=== PATIENT | male | born 1955 | race Caucasian/White ===

== ENCOUNTER → 2018-03-28 | Outpatient (CLI) | payer BC ==
[2018-03-28 11:21] LABS: Basophils # (A) 0.1 k/uL (0-0.2); Basophils % (A) 1 %; Eosinophils # (A) 0.4 k/uL (0-0.7); Eosinophils % (A) 7 %; HCT 47.4 % (39.0-53.0); Lymphocytes # (A) 2.1 k/uL (1.0-4.8); Lymphocytes % (A) 32 %; MCH 36.5 pg (25.0-35.0); MCHC 33.8 g/dL (31.0-37.0); MCV 107.9 fL (80.0-100.0); Macrocytosis Moderate; Mean Platelet Volume 8.1; Monocytes # (A) 0.3 k/uL (0-1.0); Monocytes % (A) 5 %; Neutrophils # (A) 3.5 k/uL (1.3-7.7); Neutrophils % (A) 53 %; Platelet Count 153 k/uL (150-450); RBC 4.39 m/uL (4.30-5.90); WBC 6.6 k/uL (3.8-10.6)
[2018-03-28 11:23] LABS: Albumin 4.8 g/dL (3.5-5.0); Calcium 10.1 mg/dL (8.4-10.2); Potassium 5.2 mmol/L (3.5-5.1); Total Bilirubin 2.3 mg/dL (0.2-1.3); Total Protein 7.5 g/dL (6.3-8.2)
[2018-03-28 11:28] LABS: Appearance,Urine Clear (Clear); Bilirubin,Urine Negative (Negative); Blood,Urine Negative (Negative); Color,Urine Yellow; Glucose,Urine (UA) Negative (Negative); Ketones,Urine Negative (Negative); Leukocyte Esterase,Urine Negative (Negative); Nitrite,Urine Negative (Negative); PH, Urine 5.5 (5.0-8.0); Protein,Urine Negative (Negative); Specific Gravity,Urine 1.013 (1.001-1.035); Urobilinogen,Urine <2.0 mg/dL (<2.0)
[2018-03-28 11:46] LABS: INR 1.1 (<1.2); Partial Thromboplastin Time 23.7 sec (22.0-30.0); Prothrombin Time 10.7 sec (9.0-12.0)
== END | disposition home or self-care (01) ==
LOC: LABPAT 10:00
PROVIDERS: ATTEND Orthopaedic Surgery
DX: Z01.812 Encounter for preprocedural laboratory examination (principal)
CPT/HCPCS: 36415; 80053; 81003; 85025; 85610; 85730; 87070

== ENCOUNTER 2018-04-05 11:40 | Inpatient (IN) | payer BC ==
[2018-03-30 12:10] VITALS: BMI 25.0
[~2018-04-05 11:40] MED LIST: ONDANSETRON 4 MG/2 ML VIAL IVP PRN; ONDANSETRON 4 MG/2 ML VIAL ONE; TRANEXAMIC ACID 1,000 MG in SODIUM CHLORIDE 0.9% 50 ML IVPB ONE; ceFAZolin IN SWFI 2 GM/20 ML SYRINGE IVP ONE; fentaNYL (PF) 50 MCG/ML 2 ML AMP IV PRN
[2018-04-05] MEDS: ACETAMINOPHEN TAB 500 MG TAB PO ONE ×2 (12:12→17:42)
[2018-04-05] MEDS: MELOXICAM 7.5 MG TAB PO ONE ×2 (12:13→17:42)
[2018-04-05] MEDS ORDERED: LIDOCAINE 1% 20 ML VIAL (10MG/ML) FOR IV START INTRADERMA ONE (12:13)
[2018-04-05] MEDS: LACTATED RINGERS 1,000 ML IV SCH ×6 (12:14→17:47)
[2018-04-05] MEDS ORDERED: DEXAMETHASONE SOD PHOSPHATE 10 MG/ML 1 ML VIAL IV ONE (12:18)
[2018-04-05 12:25] LABS: Basophils # (A) 0.1 k/uL (0-0.2); Basophils % (A) 1 %; Eosinophils # (A) 0.6 k/uL (0-0.7); Eosinophils % (A) 7 %; HCT 44.8 % (39.0-53.0); HGB 15.2 gm/dL (13.0-17.5); Lymphocytes # (A) 2.3 k/uL (1.0-4.8); Lymphocytes % (A) 28 %; MCH 36.9 pg (25.0-35.0); MCV 108.6 fL (80.0-100.0); Macrocytosis Moderate; Mean Platelet Volume 7.8; Monocytes # (A) 0.4 k/uL (0-1.0); Monocytes % (A) 5 %; Neutrophils # (A) 4.8 k/uL (1.3-7.7); Neutrophils % (A) 58 %; Platelet Count 139 k/uL (150-450); RBC 4.12 m/uL (4.30-5.90); RDW 13.8 % (11.5-15.5); WBC 8.2 k/uL (3.8-10.6)
[2018-04-05] MEDS ORDERED: LACTATED RINGERS 1,000 ML BAG IV ONE (12:46)
[2018-04-05] MEDS ORDERED: HEPARIN SODIUM,PORCINE 10,000 UNIT/ML 1 ML VIAL ONE (12:46)
[2018-04-05] MEDS: ROPIVACAINE 246.25 MG, EPINEPHrine 0.5 MG, KETOROLAC 30 MG, cloNIDine HCL/PF 80 MCG, WA... MISCELLANE ONE ×10 (13:22→14:05)
[2018-04-05] MEDS ORDERED: ceFAZolin 3,000 MG in SODIUM CHLORIDE 0.9% IRRIGATIO 3,000 ML IRRIGATION ONE (13:22)
[2018-04-05] MEDS ORDERED: LACTATED RINGERS 1,000 ML IV ONE (13:39)
--- NOTE | 2018-04-05 14:14 | P.OP ---
Date of Procedure: 04/05/18 Preoperative Diagnosis: Severe osteoarthritis left hip Postoperative Diagnosis: Severe osteoarthritis left hip Procedure(s) Performed: Left total hip arthroplasty with a direct anterior approach Implants: Moss and nephew Polarstem size 5 standard Moss & Nephew R3, 3 hole acetabular shell, 54 mm Moss [employer] Nephew reflection 6.5 mm cancellus screw, 20 mm 2 Moss [employer] Nephew R3, XLPE 20 acetabular liner Moss & Nephew Oxinium femoral head 36 m, +8 All components were press-fit. The articulation is Oxinium on polyethylene. Anesthesia: spinal Surgeon: Manuel Flynn Print Producer #1: Donna Garcia Estimated Blood Loss (ml): 100 Pathology: other (Femoral head) Condition: stable Disposition: PACU Indications for Procedure: After failure of conservative treatment we discussed the surgical and nonsurgical treatment options at length. Patient wishes to proceed with a total hip arthroplasty with a direct anterior approach. Complications specific to this procedure were discussed at length, including but not limited to infection, leg length discrepancy, dislocation, and nerve injury. Patient is aware of all these complications and informed consent was obtained Operative Findings: The operative findings are consistent with severe osteoarthritis of the left hip Description of Procedure: Patient was seen and evaluated in the preoperative area, consent was reviewed, and the surgical site was marked with a skin marker. Patient was then brought to the operating room and given prophylactic antibiotics intravenously. 1 g of Tranexamic acid was also given. A spinal anesthetic was administered by the anesthesia department. The patient was then placed on the Vancleave table with the bony prominences well-padded. The hip area was then prepped and draped in usual sterile fashion. A universal timeout was then performed, which confirmed the patient's name, surgical site, ALLERGIES, and procedure being performed. Next the incision site was located at 1 cm distal and 1 cm lateral to the anterior superior iliac spine. The skin and subcutaneous tissues were sharply incised. Incision was carefully dissected down to the fascia overlying the tensor fascia magdalene muscle. This fascia was then incised in line with the incision. Next, using blunt finger dissection, the tensor fascia magdalene muscle was dissected off its investing fascia. The muscle was then carefully retracted laterally with a cobra retractor over the lateral neck of the femur. Next, the circumflex vessels were identified and cauterized using the AquaMantis device. The anterior hip capsule was then exposed. The capsule was then opened and an inverted T fashion. Cobra retractors were then placed intracapsularly. The proximal femur was then visualized. The femoral neck was then osteotomized appropriate level above the lesser trochanter. Small amount of traction was placed with the Vancleave table. A small wedge of bone was then removed from the remaining femoral head. Next, using a corkscrew femoral head was easily removed from the acetabulum. On gross visual inspection, the femoral head had complete loss of articular cartilage in multiple periarticular osteophytes. Attention was then turned to the acetabulum. the acetabulum was exposed and any remaining labrum was excised. Sequential reaming of the acetabulum was performed using fluoroscopic guidance. When the appropriate size was reached, a trial was then placed. The position and fit of the trial was checked with fluoroscopy. The trial was then removed. Then, using fluoroscopic guidance, the final implant was impacted at 20 of anteversion and 40 of abduction, and fully seated in the acetabulum. 2 screws were then placed in the acetabulum. Again fluoroscopy was used to check position of the screws. Next, the liner was then impacted, with a 20 elevated liner located in the anterior superior quadrant. Component locking was confirmed. Attention was then directed to the femur. With the aid of the Vancleave table, the femur was externally rotated to approximately 130, extended, and abducted under the opposite leg. A side hook was then placed under the proximal femur, and the side hook elevator was used to elevate the proximal femur. Retractors were then placed. A capsular release was performed, as well as a release of the conjoined tendon, which afforded excellent visualization of the proximal femur. Next, a box osteotome was used to lateralize the proximal femur. A hand engraver was then used to locate the femoral canal. Sequential broaching was then performed with appropriate size which afforded excellent fixation in the proximal femur. A trial was then placed with appropriate head and neck, and the hip was gently reduced with the aid of the Vancleave table. Fluoroscopy was then used to check position of the components, as well as to ensure equal leg lengths. The hip was then gently dislocated and the trials were then removed. Final implants were then impacted and the hip was again reduced. Final fluoroscopic x-rays confirmed that the components were in anatomic position, as well as equal leg lengths. The hip was also taken through range of motion, and found to be stable. The hip was then copiously irrigated with antibiotic solution with pulsatile lavage. The hip was then irrigated with Irrisept solution. The soft tissues were then injected with a ropivacaine solution, which consisted of 246.25 mg of ropivacaine, 0.5 mg of epinephrine, 30 mg of Toradol, 80 g of clonidine, and 48.45 mL of sterile water, for a total of 100 mL of fluid injected. A second dose of 1 g of Tranexamic acid was also given. the fascia was then closed with 2-0 strata fix suture. The subcutaneous tissue was closed with 3-0 Vicryl. The subcuticular tissue was closed with 3-0 strata fix suture. The skin was then closed with Dermabond glue and a sterile silver dressing. The patient was then transferred to the recovery room in stable condition. The business assistant VEDA Reynaga was required due to the complexity of surgery, and the need for skilled surgical scrub technologist for positioning, draping, exposure, retraction, and closure of the wound.
--- NOTE | 2018-04-05 14:19 | XR ---
EXAMINATION TYPE: XR Hip Limited LT DATE OF EXAM: 04/05/2018 COMPARISON: NONE HISTORY: Anterior hip replacement 2 intraoperative C-arm images document the seizure
--- NOTE | 2018-04-05 14:20 | FL ---
Fluoroscopy HISTORY: Hip replacement 33 seconds fluoroscopy time supplied to the referring clinician. 2 intraoperative C-arm images docu ment the procedure. See dictated report from orthopedic surgery.
[2018-04-05] MEDS ORDERED: ONDANSETRON 4 MG/2 ML VIAL IVP PRN (14:39)
[2018-04-05] MEDS ORDERED: NALOXONE 0.4 MG/ML 1 ML VIAL IV PRN (14:39)
[2018-04-05] MEDS ORDERED: MAGNESIUM HYDROXIDE 2,400 MG/10 ML CUP PO PRN (14:39)
[2018-04-05] MEDS ORDERED: hydrOXYzine PAMOATE 25 MG CAP PO PRN (14:39)
[2018-04-05] MEDS ORDERED: HYDROcodone/APAP 5-325MG 1 EACH TAB PO PRN ×2 (14:39)
[2018-04-05] MEDS ORDERED: HYDROmorphone 0.5 MG/0.5 ML SYRINGE IVP PRN ×3 (14:39)
[2018-04-05] MEDS ORDERED: DIAZEPAM 5 MG TAB PO PRN ×2 (14:39)
[2018-04-05] MEDS ORDERED: SODIUM CHLORIDE 0.9% 1,000 ML IV SCH (14:45)
--- NOTE | 2018-04-05 15:05 | XR ---
Left hip HISTORY: Post op left hip arthroplasty Single frontal view of the left hip Patient is status post left hip arthroplasty. Patient is rotated. Postop coils are present within the soft tissues towards the midline. Lucency in the soft tissues compatible with postop state. Near seth tomic alignment of the patient's hip replacement. IMPRESSION: Orthopedic follow-up.
[2018-04-05 15:25] VITALS: RESP 16
--- NOTE | 2018-04-05 16:16 | P.CONS ---
History of Present Illness - Reason for Consult Consult date: 04/05/18 hypertension Requesting physician: Manuel Flynn - Chief Complaint left hip pain - History of Present Illness Patient is a 63-year-old male with a past medical history of hypertension, dyslipidemia, gout, and tobacco abuse who presented for elective left anterior total hip replacement. He tolerated the procedure well without any immediate postoperative complications. We've been asked to consult for medical management. Patient seen and examined at bedside. He is feeling well postoperatively. He denies any nausea, vomiting, shortness of breath, or chest pain. Currently he is not having any feeling in either lower extremities and his pain is controlled. Patient states that he has been struggling with hip pain since 2013. He initially thought it was his back. He has been shoveling through but the pain continued to get worse requiring daily Motrin and was limiting his physical activity. He decided to proceed with elective total hip arthroplasty. He denies any recent cough, cold, fever, flu, nausea, vomiting, diarrhea, and dysuria. He has otherwise been in his normal state of health. He denies any recent changes in medications other than coming off of his Motrin. He has been taking Ultram once every other day to help with pain. Reports already feeling cravings for cigarettes. Preoperative labs reviewed and showed elevated potassium level. Patient is on lisinopril and hydrochlorothiazide at home. We'll stop his lisinopril for now and order repeat basic metabolic profile in AM. Discussed with patient and he is aware that we may need to come off his lisinopril for the time being as we are combining this with an NSAID for the next 30 days for DVT prophylaxis. Review of Systems Positive: + Left hip pain Pertinent positives and negatives as discussed in HPI, a complete review of systems was performed and all other systems are negative. Past Medical History Past Medical History: Hyperlipidemia, Hypertension, Osteoarthritis (OA) Additional Past Medical History / Comment(s): Gout, hard of hearing, gait disturbance History of Any Multi-Drug Resistant Organisms: None Reported Past Surgical History: Hernia Repair, Tonsillectomy Additional Past Surgical History / Comment(s): LEFT INGUINAL HERNIA X2, Past Anesthesia/Blood Transfusion Reactions: No Reported Reaction Smoking Status: Current every day smoker Past Alcohol Use History: Daily Past Drug Use History: None Reported Additional History: Working in [employer], lives with his , independent in all ADLs, not using any assistive devices prior to presentation. - Past Family History Father Family Medical History: Cancer, Diabetes Mellitus Additional Family Medical History / Comment(s): PROSTATE CANCER Mother Family Medical History: Hypertension Medications and Allergies Home Medications Medication Instructions Recorded Confirmed Type Acetaminophen [Tylenol Arthritis] 1,300 mg PO Q8HR PRN 03/29/18 04/05/18 History Allopurinol [Zyloprim] 300 mg PO DAILY 03/29/18 04/05/18 History Aspirin 81 mg PO DAILY 03/29/18 04/05/18 History Atenolol [Tenormin] 100 mg PO DAILY 03/29/18 04/05/18 History Glucosam/Silvio-Msm1/C/Jesus Alberto/Bosw 1 each PO DAILY 03/29/18 04/05/18 History [Glucosamine-Chondroitin Tablet] Lisinopril-Hctz 10-12.5 mg 1 tab PO DAILY 03/29/18 04/05/18 History [Zestoretic 10-12.5] Multivitamin [Men's Multi-Vitamin] 1 each PO DAILY 03/29/18 04/05/18 History Simvastatin [Zocor] 80 mg PO DAILY 03/29/18 04/05/18 History Ubidecarenone [Co Q-10] 60 mg PO DAILY 03/29/18 04/05/18 History Allergies Allergy/AdvReac Type Severity Reaction Status Date / Time No Known Allergies Allergy Verified 04/05/18 12:01 Physical Exam Osteopathic Statement: *. No significant issues noted on an osteopathic structural exam other than those noted in the History and Physical/Consult. Vitals: Vital Signs Temp Pulse Resp BP Pulse Ox 04/05/18 15:21 61 16 118/57 94 L 04/05/18 15:06 64 16 122/67 94 L 04/05/18 14:49 61 16 118/64 96 04/05/18 14:34 98.7 F 68 18 116/53 95 04/05/18 12:11 97.6 F 77 16 194/84 99 Intake and Output 04/05/18 04/05/18 04/05/18 06:59 14:59 22:59 Intake Total 1201 100 Output Total 100 Balance 1101 100 Intake: IV 1201 100 Output: Estimated Blood Loss 100 General: non toxic, no distress, appears at stated age, normal weight Derm: no unusual rashes/lesions no unusual ecchymoses, warm, dry Head: atraumatic, normocephalic, symmetric Eyes: EOMI, no lid lag, anicteric sclera, pupils equal round reactive to light ENT: Nose and ears atraumatic, no thrush, no pharyngeal erythema Neck: No thyromegaly, no cervical lymphadenopathy, trachea midline, supple Mouth: no lip lesion, mucus membranes moist, poor dentition Cardiovascular: S1S2 reg, no murmur, positive posterior tibial pulse bilateral, no edema, capillary refill less than 2 seconds Lungs: Decreased breath sounds bilateral bases, no rhonchi, no rales , no accessory muscle use Abdominal: soft, nontender to palpation, no guarding, no appreciable organomegaly, normal bowel sounds Ext: no gross muscle atrophy, muscle strength 5 out of 5 in upper extremities, 0 out of 5 in lower extremities due to spinal anesthesia, no contractures, Neuro: CN II-XI grossly intact, light touch intact all upper extremities, no light touch intact in lower extremities, Psych: Alert, oriented, appropriate affect Results CBC & Chem 7: 04/05/18 12:10 Labs: Abnormal Lab Results - Last 24 Hours (Table) 04/05/18 Range/Units 12:10 RBC 4.12 L (4.30-5.90) m/uL MCV 108.6 H (80.0-100.0) fL MCH 36.9 H (25.0-35.0) pg Plt Count 139 L (150-450) k/uL Assessment and Plan Assessment: Osteoarthritis status post left anterior total hip replacement -Pain control -PT/OT evaluation -DVT prophylaxis with aspirin 325 mg twice a day per orthopedics 9-patient plans to go home with home health care on discharge Hypertension, controlled -Continue with atenolol and hydrochlorothiazide, hold lisinopril Borderline elevated potassium level preoperatively -Hold lisinopril -Received IV fluids preoperatively - repeat basic metabolic profile in AM. - Discussed with patient and he is aware that we may need to come off his lisinopril for the time being as we are combining this with an NSAID for the next 30 days for DVT prophylaxis. Dyslipidemia - Statin therapy Thank you for allowing us to participate in the care of this patient. Do not hesitate to contact us with questions. Someone can be reached from the [facility] hospitalist group at all hours of the day at [phone].
[2018-04-05] MEDS: NICOTINE 21MG/24HR PATCH TRANSDERM SCH (17:07)
[2018-04-05] MEDS: ceFAZolin IN SWFI 2 GM/20 ML SYRINGE IVP SCH (20:29)
[2018-04-05] MEDS: ASPIRIN 325 MG TAB PO SCH (20:29)
[2018-04-05] MEDS ORDERED: SENNOSIDES-DOCUSATE SODIUM 1 EACH TAB PO SCH (21:00)
[2018-04-06 02:38] VITALS: BP 155/79; PULSE 72; TEMP 97.3
[2018-04-06] MEDS: ceFAZolin IN SWFI 2 GM/20 ML SYRINGE IVP SCH (05:35)
[2018-04-06] MEDS: ASPIRIN 325 MG TAB PO SCH (08:17)
[2018-04-06] MEDS: NICOTINE 21MG/24HR PATCH TRANSDERM SCH (08:17)
[2018-04-06 08:25] LABS: Calcium 8.8 mg/dL (8.4-10.2); Potassium 4.4 mmol/L (3.5-5.1)
--- NOTE | 2018-04-06 08:25 | P.DS ---
Providers Date of admission: 04/05/18 11:40 Expected date of discharge: 04/06/18 Attending physician: Manuel Flynn Consults: 04/05/18 14:39 Consult Physician Routine Consulting Provider: Cesar Choi Consult Reason/Comments: medical management Do you want consulting provider notified?: Yes 04/05/18 15:23 Consult Physician Routine Consulting Provider: Jackie Méndez Consult Reason/Comments: medical management Do you want consulting provider notified?: Yes Primary care physician: Cesar Choi - Discharge Diagnosis(es) (1) Primary osteoarthritis of left hip Current Visit: Yes Status: Acute (2) S/P total hip arthroplasty Current Visit: Yes Status: Acute Hospital Course: This is a 63-year-old male with known history of degenerative arthritis of the left hip. The patient presents for evaluation. After discussion and consideration patient elects to proceed with total hip arthroplasty. The patient is seen preoperatively by Dr. Flynn and medically cleared for surgery by their primary care physician. Patient is admitted to [facility] on 04/06/2018 for total hip arthroplasty. The procedures performed without complication or sequelae. The patient is doing well postoperatively. Labs and vital signs are stable on day of discharge. On day of discharge patient's hip incision is healing well. There is minimal erythema. There is no drainage noted at this time. There is minimal soft tissue swelling to the hip and thigh. Patient has full foot and ankle motion without difficulty or pain. Neurovascular status to the left lower extremity is intact. Patient is discharged home in good condition. Please see med rec for accurate list of home medications. Plan - Discharge Summary Discharge Rx Participant: No New Discharge Prescriptions: No Action Glucosam/Silvio-Msm1/C/Jesus Alberto/Bosw [Glucosamine-Chondroitin Tablet] 1 tab PO DAILY Multivitamin [Men's Multi-Vitamin] 1 tab PO DAILY Aspirin 81 mg PO DAILY Lisinopril-Hctz 10-12.5 mg [Zestoretic 10-12.5] 1 tab PO DAILY Atenolol [Tenormin] 100 mg PO DAILY Allopurinol [Zyloprim] 300 mg PO DAILY Simvastatin [Zocor] 80 mg PO HS Acetaminophen [Tylenol Arthritis] 1,300 mg PO Q8HR PRN PRN Reason: Pain Co Q-10 60mg 60 mg PO DAILY Discharge Medication List Acetaminophen [Tylenol Arthritis] 1,300 mg PO Q8HR PRN 03/29/18 [History] Allopurinol [Zyloprim] 300 mg PO DAILY 03/29/18 [History] Aspirin 81 mg PO DAILY 03/29/18 [History] Atenolol [Tenormin] 100 mg PO DAILY 03/29/18 [History] Glucosam/Silvio-Msm1/C/Jesus Alberto/Bosw [Glucosamine-Chondroitin Tablet] 1 tab PO DAILY 03/29/18 [History] Lisinopril-Hctz 10-12.5 mg [Zestoretic 10-12.5] 1 tab PO DAILY 03/29/18 [History ] Multivitamin [Men's Multi-Vitamin] 1 tab PO DAILY 03/29/18 [History] Simvastatin [Zocor] 80 mg PO HS 03/29/18 [History] Co Q-10 60mg 60 mg PO DAILY 04/05/18 [History]
[2018-04-06] MEDS ORDERED: MELOXICAM 7.5 MG TAB PO SCH (09:00)
[2018-04-06] MEDS ORDERED: ATENOLOL 50 MG TAB PO SCH (09:00)
[2018-04-06] MEDS ORDERED: HYDROCHLOROTHIAZIDE 12.5 MG CAP PO SCH (09:00)
[2018-04-06] MEDS ORDERED: ATORVASTATIN 40 MG TAB PO SCH (09:00)
[2018-04-06] MEDS ORDERED: ALLOPURINOL 300 MG TAB PO SCH (09:00)
[2018-04-06 09:45] LABS: Basophils % (A) 0 %; Eosinophils % (A) 0 %; HCT 34.8 % (39.0-53.0); Lymphocytes % (A) 10 %; MCH 36.2 pg (25.0-35.0); MCHC 33.5 g/dL (31.0-37.0); MCV 107.8 fL (80.0-100.0); Macrocytosis Moderate; Mean Platelet Volume 9.3; Monocytes # (A) 0.7 k/uL (0-1.0); Monocytes % (A) 7 %; Neutrophils # (A) 7.9 k/uL (1.3-7.7); Neutrophils % (A) 82 %; Platelet Count 128 k/uL (150-450); RBC 3.23 m/uL (4.30-5.90); RDW 13.6 % (11.5-15.5); WBC 9.7 k/uL (3.8-10.6)
[2018-04-06 09:46] LABS: HGB 11.7 gm/dL (13.0-17.5)
--- NOTE | 2018-04-06 13:18 | P.PN ---
Subjective Progress Note Date: 04/06/18 Principal diagnosis: No complaints of chest pain no shortness of breath Patient wants to go home Constitutional: No acute distress, conversant, pleasant Eyes: Anicteric sclerae, moist conjunctiva, no lid-lag PERRLA ENMT: NC/AT Oropharynx clear, no erythema, exudates Neck: Supple, FROM, no masses, or JVD No carotid bruits No thyromegaly Lungs: Clear to auscultation Clear to percussion Normal respiratory effort, no accessory muscle use Cardiovascular: Heart regular in rate and rhythm, No murmurs, gallops, or rubs No peripheral edema Abdominal: Soft Nontender, no guarding, Skin: Normal temperature, tone, texture, turgor No induration No subcutaneous nodules No rash, lesions No ulcers Extremities: No digital cyanosis No clubbing Pedal pulses intact and symmetrical Radial pulses intact and symmetrical Normal gait and station No calf tenderness Psychiatric:Alert and oriented to person, place and time Appropriate affect Intact judgement Neuro: Muscles Strength 5/5 in all 4 extremities Osteoarthritis status post left anterior total hip replacement -Pain control -PT/OT evaluation -\ Hypertension, controlled -Continue with atenolol and hydrochlorothiazide, hold lisinopril Borderline elevated potassium level preoperatively -Hold lisinopril -Received IV fluids preoperatively - Stable for discharge - Patient advised to stop lisinopril but the patient insisting that the high potassium is from his potassium supplements from the multivitamins Patient to follow-up with primary care physician The hyperkalemia was mild and not life-threatening as is the patient is on hydrochlorothiazide which decrease the potassium patient needs to follow-up with primary care physician to decide about his medications Dyslipidemia - Statin therapy Objective - Vital Signs Vital signs: Vital Signs Temp 97.3 F L 04/06/18 01:40 Pulse 72 04/06/18 01:40 Resp 16 04/06/18 01:40 BP 155/79 04/06/18 01:40 Pulse Ox 97 04/06/18 01:40 Intake & Output 04/05/18 04/06/18 04/06/18 18:59 06:59 18:59 Intake Total 1541 3232.5 Output Total 100 Balance 1441 3232.5 Weight 78.925 kg Intake: IV 1301 Intake, IV Titration 942.5 Amount Sodium Chloride 0.9% 1, 942.5 000 ml @ 65 mls/hr IV . [id number] [facility] Rx#:[id number] Oral 240 2290 Output: Estimated Blood Loss 100 Other: Voiding Method Toilet # Voids 2 - Labs CBC & Chem 7: 04/06/18 07:08 04/06/18 07:08 Labs: Abnormal Lab Results - Last 24 Hours (Table) 04/06/18 04/06/18 Range/Units 07:08 07:08 RBC 3.23 L (4.30-5.90) m/uL Hgb 11.7 L D (13.0-17.5) gm/dL Hct 34.8 L (39.0-53.0) % MCV 107.8 H (80.0-100.0) fL MCH 36.2 H (25.0-35.0) pg Plt Count 128 L (150-450) k/uL Neutrophils # 7.9 H (1.3-7.7) k/uL Sodium 132 L (137-145) mmol/L Chloride 96 L (98-107) mmol/L BUN 36 H (9-20) mg/dL Creatinine 1.44 H (0.66-1.25) mg/dL Glucose 142 H (74-99) mg/dL
== END 2018-04-06 09:43 | disposition home health service (06) | DRG 470 ==
LOC: 2ORMAIN 11:40 → 3SUR 14:34
PROVIDERS: ADMIT Orthopaedic Surgery; ATTEND Orthopaedic Surgery
PROC: 0SRB06A Replacement of Left Hip Joint with Oxidized Zirconium on Polyethylene Synthetic Substitute, Uncemented, Open Approach (ICD-10-PCS; principal; 2018-04-05 13:45)
DX: M16.12 Unilateral primary osteoarthritis, left hip (principal); E78.5 Hyperlipidemia, unspecified; F17.200 Nicotine dependence, unspecified, uncomplicated; H91.90 Unspecified hearing loss, unspecified ear; I10 Essential (primary) hypertension; M10.9 Gout, unspecified; R26.9 Unspecified abnormalities of gait and mobility; Z79.82 Long term (current) use of aspirin; Z79.899 Other long term (current) drug therapy; Z80.42 Family history of malignant neoplasm of prostate; Z82.49 Family history of ischemic heart disease and other diseases of the circulatory system; Z83.3 Family history of diabetes mellitus
CPT/HCPCS: 73501; 80048; 85025; 86850; 86900; 86901; 88300

== ENCOUNTER 2022-08-27 19:45 | Inpatient (IN) | payer BC, MEDICARE ==
--- NOTE | 2022-08-27 20:07 | ED ---
Altered Mental Status HPI - General Source: patient, family, EMS, RN notes reviewed Mode of arrival: EMS Limitations: altered mental status - History of Present Illness MD Complaint: altered mental status, confusion <Jose Whalen - Last Filed: 08/27/22 21:04> <Jose Nunez - Last Filed: 08/28/22 01:14> - General Stated Complaint: weakness Time Seen by Provider: 08/27/22 19:45 - History of Present Illness Initial Comments: 59-year-old male who was recently diagnosed with cirrhosis who is a 40 year history of drinking a pint of rum every day with his last drink being August 12 who presents by EMS today with complaints of weakness decreased oral intake for last week some confusion. Per his they found on the bathroom floor this morning he was unsure how he got there no definitive signs of trauma. He slept quite a bit yesterday and last night and then again to about 2:30 this a fternoon. No fevers he has had chills no sweats no nausea no vomiting decreased oral intake over the past week as stated. No chest pain palpitations. He does smoke also one pack of cigarettes per day. He had a colonoscopy done approximately 3 weeks ago and this is when the family noted he started to decline. (Jose Whalen) - Related Data Home Medications Medication Instructions Recorded Confirmed Acetaminophen [Tylenol Arthritis] 1,300 mg PO Q8HR PRN 03/29/18 04/05/18 Aspirin 81 mg PO DAILY 03/29/18 04/05/18 Glucosam/Silvio-Msm1/C/Jesus Alberto/Bosw 1 tab PO DAILY 03/29/18 04/05/18 [Glucosamine-Chondroitin Tablet] Lisinopril-Hctz 10-12.5 mg 1 tab PO DAILY 03/29/18 04/05/18 [Zestoretic 10-12.5] Multivitamin [Men's Multi-Vitamin] 1 tab PO DAILY 03/29/18 04/05/18 Simvastatin [Zocor] 80 mg PO HS 03/29/18 04/05/18 allopurinoL [Zyloprim] 300 mg PO DAILY 03/29/18 04/05/18 atenoloL [Tenormin] 100 mg PO DAILY 03/29/18 04/05/18 Co Q-10 60mg 60 mg PO DAILY 04/05/18 04/05/18 Previous Rx's Medication Instructions Recorded Aspirin 325 mg PO BID #60 tab 04/06/18 HYDROcodone/APAP 5-325MG [[place] 1 - 2 tab PO Q4-6H PRN #60 tab 04/06/18 5-325] Sennosides [Senokot] 1 tab PO BID #60 tablet 04/06/18 Allergies Allergy/AdvReac Type Severity Reaction Status Date / Time No Known Allergies Allergy Verified 04/05/18 16:55 Review of Systems ROS Other: All systems not noted in ROS Statement are negative. <Jose Whalen - Last Filed: 08/27/22 21:04> ROS Other: All systems not noted in ROS Statement are negative. <Jose Nunez - Last Filed: 08/28/22 01:14> ROS Statement: Those systems with pertinent positive or pertinent negative responses have been documented in the HPI. Past Medical History Past Medical History: Hyperlipidemia, Hypertension, Osteoarthritis (OA) Additional Past Medical History / Comment(s): Gout, hard of hearing, gait disturbance History of Any Multi-Drug Resistant Organisms: None Reported Past Surgical History: Hernia Repair, Tonsillectomy Additional Past Surgical History / Comment(s): LEFT INGUINAL HERNIA X2, Past Anesthesia/Blood Transfusion Reactions: No Reported Reaction Past Psychological History: No Psychological Hx Reported Past Alcohol Use History: Daily, Heavy Past Drug Use History: None Reported - Past Family History Father Family Medical History: Cancer, Diabetes Mellitus Additional Family Medical History / Comment(s): PROSTATE CANCER Mother Family Medical History: Hypertension <Jose Whalen - Last Filed: 08/27/22 21:04> General Exam Limitations: altered mental status General appearance: alert, lethargic Head exam: Present: atraumatic, normocephalic, normal inspection Eye exam: Present: scleral icterus ENT exam: Present: mucous membranes dry Neck exam: Present: normal inspection, full ROM, other (No stridor JVD or bruits). Absent: tenderness, meningismus, lymphadenopathy Respiratory exam: Present: normal lung sounds bilaterally. Absent: respiratory distress, wheezes, rales, rhonchi, stridor Cardiovascular Exam: Present: irregular rhythm GI/Abdominal exam: Present: soft, normal bowel sounds. Absent: distended, tenderness, guarding, rebound, rigid Rectal exam: Present: deferred Extremities exam: Present: full ROM, normal capillary refill, other (Icteric). Absent: tenderness Back exam: Present: full ROM. Absent: tenderness, CVA tenderness (R), CVA tenderness (L) Neurological exam: Present: alert, oriented X3, CN II-XII intact, motor sensory deficit Psychiatric exam: Present: flat affect Skin exam: Present: warm, dry, intact (Jaundiced) <Jose Whalen - Last Filed: 08/27/22 21:04> - General Exam Comments Initial Comments: This is a well-developed awake alert but slow to answer male he does appear jaundiced. (Jose Whalen) Course <Jose Whalen - Last Filed: 08/27/22 21:04> Vital Signs 08/27/22 08/27/22 08/27/22 19:49 21:19 22:29 Temperature 97.6 F Pulse Rate 58 L 54 L 60 Respiratory 18 20 Rate Blood Pressure 104/36 127/49 O2 Sat by Pulse 99 100 Oximetry 08/27/22 22:43 Temperature Pulse Rate 61 Respiratory Rate Blood Pressure O2 Sat by Pulse Oximetry - Reevaluation(s) Reevaluation #1: 08/27/22 21:04 Workup is in progress at this time and incomplete the patient's care will be endorsed to Dr. Nunez at our shift change (Jose Whalen) Medical Decision Making - Lab Data Result diagrams: 08/27/22 20:16 - EKG Data -: EKG Interpreted by Me <Jose Whalen - Last Filed: 08/27/22 21:04> - Lab Data Result diagrams: 08/27/22 20:16 08/28/22 00:05 <Jose Nunez - Last Filed: 08/28/22 01:14> - Medical Decision Making 67-year-old male presenting with jaundice, confusion. Patient reevaluated after sign out with pending workup. He is jaundice. Hemodynamics are stable. Patient is in liver failure and renal failure. Patient has elevated INR, elevated lactic acid, elevated liver enzymes, elevated bilirubin, elevated ammonia, elevated BUN and creatinine. His potassium is significantly elevated. He is in a narrow complex rhythm. He is given IV fluids, calcium gluconate, albuterol, sodium bicarb. Potassium is repeated in the emergency department s tone trending. Patient will be admitted to sound physician group, evaluated by Dr. Up in the emergency department. Gastroenterology and nephrology placed on consult. (Jose Nunez) - Lab Data Lab Results 08/27/22 08/27/22 08/27/22 Range/Units 20:16 20:16 20:16 WBC 7.2 (3.8-10.6) k/uL RBC 3.17 L (4.30-5.90) m/uL Hgb 12.0 L (13.0-17.5) gm/dL Hct 36.5 L (39.0-53.0) % MCV 115.0 H (80.0-100.0) fL MCH 37.9 H (25.0-35.0) pg MCHC 32.9 (31.0-37.0) g/dL RDW 17.1 H (11.5-15.5) % Plt Count 149 L D (150-450) k/uL MPV 12.7 Neutrophils % 72 % Lymphocytes % 21 % Monocytes % 5 % Eosinophils % 1 % Basophils % 0 % Neutrophils # 5.1 (1.3-7.7) k/uL Lymphocytes # 1.5 (1.0-4.8) k/uL Monocytes # 0.3 (0-1.0) k/uL Eosinophils # 0.0 (0-0.7) k/uL Basophils # 0.0 (0-0.2) k/uL Manual Slide Review Performed Hypochromasia Slight Anisocytosis Slight Macrocytosis Marked A Target Cells Present PT 51.2 H (9.0-12.0) sec INR 5.1 H* (<1.2) Sodium 133 L (137-145) mmol/L Potassium 8.2 H* (3.5-5.1) mmol/L Chloride 104 (98-107) mmol/L Carbon Dioxide 10 L (22-30) mmol/L Anion Gap 19 mmol/L BUN 102 H* (9-20) mg/dL Creatinine 8.34 H* (0.66-1.25) mg/dL Est GFR (CKD-EPI)AfAm 7 (>60 ml/min/1.73 sqM) Est GFR (CKD-EPI)NonAf 6 (>60 ml/min/1.73 sqM) Glucose 91 (74-99) mg/dL Lactic Ac Sepsis Rflx Plasma Lactic Acid Emmanuel (0.7-2.0) mmol/L Calcium 8.7 (8.4-10.2) mg/dL Magnesium 3.0 H (1.6-2.3) mg/dL Total Bilirubin 18.0 H* (0.2-1.3) mg/dL AST 1637 H (17-59) U/L ALT 252 H (4-49) U/L Alkaline Phosphatase 182 H (38-126) U/L Ammonia (<30) umol/L Creatine Kinase 75 (55-170) U/L Troponin I (0.000-0.034) ng/mL Total Protein 6.0 L (6.3-8.2) g/dL Albumin 2.7 L (3.5-5.0) g/dL Lipase 5443 H (23-300) U/L Serum Alcohol <10 mg/dL Coronavirus (PCR) (Not Detectd) Influenza Type A RNA (Not Detectd) Influenza Type B (PCR) (Not Detectd) 08/27/22 08/27/22 08/27/22 Range/Units 20:16 20:16 20:23 WBC (3.8-10.6) k/uL RBC (4.30-5.90) m/uL Hgb (13.0-17.5) gm/dL Hct (39.0-53.0) % MCV (80.0-100.0) fL MCH (25.0-35.0) pg MCHC (31.0-37.0) g/dL RDW (11.5-15.5) % Plt Count (150-450) k/uL MPV Neutrophils % % Lymphocytes % % Monocytes % % Eosinophils % % Basophils % % Neutrophils # (1.3-7.7) k/uL Lymphocytes # (1.0-4.8) k/uL Monocytes # (0-1.0) k/uL Eosinophils # (0-0.7) k/uL Basophils # (0-0.2) k/uL Manual Slide Review Hypochromasia Anisocytosis Macrocytosis Target Cells PT (9.0-12.0) sec INR (<1.2) Sodium (137-145) mmol/L Potassium (3.5-5.1) mmol/L Chloride (98-107) mmol/L Carbon Dioxide (22-30) mmol/L Anion Gap mmol/L BUN (9-20) mg/dL Creatinine (0.66-1.25) mg/dL Est GFR (CKD-EPI)AfAm (>60 ml/min/1.73 sqM) Est GFR (CKD-EPI)NonAf (>60 ml/min/1.73 sqM) Glucose (74-99) mg/dL Lactic Ac Sepsis Rflx Plasma Lactic Acid Emmanuel 5.8 H* (0.7-2.0) mmol/L Calcium (8.4-10.2) mg/dL Magnesium (1.6-2.3) mg/dL Total Bilirubin (0.2-1.3) mg/dL AST (17-59) U/L ALT (4-49) U/L Alkaline Phosphatase (38-126) U/L Ammonia 71 H (<30) umol/L Creatine Kinase (55-170) U/L Troponin I 0.018 (0.000-0.034) ng/mL Total Protein (6.3-8.2) g/dL Albumin (3.5-5.0) g/dL Lipase (23-300) U/L Serum Alcohol mg/dL Coronavirus (PCR) Not Detected (Not Detectd) Influenza Type A RNA (Not Detectd) Influenza Type B (PCR) (Not Detectd) 08/27/22 08/27/22 08/27/22 Range/Units 20:23 20:46 23:32 WBC (3.8-10.6) k/uL RBC (4.30-5.90) m/uL Hgb (13.0-17.5) gm/dL Hct (39.0-53.0) % MCV (80.0-100.0) fL MCH (25.0-35.0) pg MCHC (31.0-37.0) g/dL RDW (11.5-15.5) % Plt Count (150-450) k/uL MPV Neutrophils % % Lymphocytes % % Monocytes % % Eosinophils % % Basophils % % Neutrophils # (1.3-7.7) k/uL Lymphocytes # (1.0-4.8) k/uL Monocytes # (0-1.0) k/uL Eosinophils # (0-0.7) k/uL Basophils # (0-0.2) k/uL Manual Slide Review Hypochromasia Anisocytosis Macrocytosis Target Cells PT (9.0-12.0) sec INR (<1.2) Sodium (137-145) mmol/L Potassium (3.5-5.1) mmol/L Chloride (98-107) mmol/L Carbon Dioxide (22-30) mmol/L Anion Gap mmol/L BUN (9-20) mg/dL Creatinine (0.66-1.25) mg/dL Est GFR (CKD-EPI)AfAm (>60 ml/min/1.73 sqM) Est GFR (CKD-EPI)NonAf (>60 ml/min/1.73 sqM) Glucose (74-99) mg/dL Lactic Ac Sepsis Rflx Y Plasma Lactic Acid Emmanuel 6.1 H* (0.7-2.0) mmol/L Calcium (8.4-10.2) mg/dL Magnesium (1.6-2.3) mg/dL Total Bilirubin (0.2-1.3) mg/dL AST (17-59) U/L ALT (4-49) U/L Alkaline Phosphatase (38-126) U/L Ammonia (<30) umol/L Creatine Kinase (55-170) U/L Troponin I (0.000-0.034) ng/mL Total Protein (6.3-8.2) g/dL Albumin (3.5-5.0) g/dL Lipase (23-300) U/L Serum Alcohol mg/dL Coronavirus (PCR) (Not Detectd) Influenza Type A RNA Not Detected (Not Detectd) Influenza Type B (PCR) Not Detected (Not Detectd) - EKG Data EKG Comments: EKG interpreted by me atrial fibrillation ventricular response of 53 QRS duration 140 QT since QTC 483/466 evidence of RVH an interventricular conduction delay (Jose Whalen) Critical Care Time Critical Care Time: Yes Total Critical Care Time: 35 <Jsoe Nunez - Last Filed: 08/28/22 01:14> Disposition <Jose Whalen - Last Filed: 08/27/22 21:04> Is patient prescribed a controlled substance at d/c from ED?: No Time of Disposition: 01:14 <Jose Nunez - Last Filed: 08/28/22 01:14> Clinical Impression: Delirium due to general medical condition, Uremic encephalopathy, Renal failure, Liver failure Disposition: ADMITTED IP TO THIS HOSP Condition: Serious
[2022-08-27 20:42] LABS: Anisocytosis Slight; Basophils % (A) 0 %; Eosinophils % (A) 1 %; HCT 36.5 % (39.0-53.0); Hypochromasia Slight; Lymphocytes # (A) 1.5 k/uL (1.0-4.8); Lymphocytes % (A) 21 %; MCH 37.9 pg (25.0-35.0); MCHC 32.9 g/dL (31.0-37.0); Macrocytosis Marked; Mean Platelet Volume 12.7; Monocytes # (A) 0.3 k/uL (0-1.0); Monocytes % (A) 5 %; Neutrophils # (A) 5.1 k/uL (1.3-7.7); Neutrophils % (A) 72 %; RBC 3.17 m/uL (4.30-5.90); RDW 17.1 % (11.5-15.5); WBC 7.2 k/uL (3.8-10.6)
[2022-08-27 20:43] LABS: Prothrombin Time 51.2 sec (9.0-12.0)
[2022-08-27 20:44] LABS: Platelet Count 149 k/uL (150-450)
[2022-08-27 20:46] LABS: Lactic Acid, Venous 5.8 mmol/L (0.7-2.0)
[2022-08-27 20:48] LABS: INR 5.1 (<1.2)
--- NOTE | 2022-08-27 20:51 | CT ---
EXAMINATION TYPE: CT brain wo con DATE OF EXAM: 08/27/2022 COMPARISON: None HISTORY: AMS CT DLP: 1204.4 mGycm Automated exposure control for dose reduction was used. There is cerebral atrophy. No mass effect or midline shift. No sign of intracranial hemorrhage. The c alvarium is intact. There is normal aeration of the mastoid sinuses. There is large cisterna magnum. IMPRESSION: Cerebral atrophy. No acute intracranial abnormality.
[2022-08-27 20:52] LABS: ALT 252 U/L (4-49); African American GFR (CKD) 7 (>60 ml/min/1.73 sqM); Albumin 2.7 g/dL (3.5-5.0); Alcohol <10 mg/dL; Alkaline Phosphatase 182 U/L (38-126); Anion Gap 19 mmol/L; Calcium 8.7 mg/dL (8.4-10.2); Carbon Dioxide 10 mmol/L (22-30); Chloride 104 mmol/L (98-107); Creatine Kinase 75 U/L (55-170); Glucose 91 mg/dL (74-99); Non-African American GFR(CKD) 6 (>60 ml/min/1.73 sqM); Sodium 133 mmol/L (137-145)
[2022-08-27] MEDS ORDERED: SODIUM CHLORIDE 0.9% 1,000 ML IV STA ×2 (20:52)
[2022-08-27 20:57] LABS: Target Cells Present
[2022-08-27 21:29] LABS: Blood Urea Nitrogen 102 mg/dL (9-20); Potassium 8.2 mmol/L (3.5-5.1)
[2022-08-27 21:30] LABS: AST 1637 U/L (17-59); Lipase 5443 U/L (23-300)
[2022-08-27] MEDS ORDERED: PANTOPRAZOLE 40 MG/10 ML VIAL IVP STA (21:30)
[2022-08-27] MEDS ORDERED: LACTULOSE 20 GM/30 ML CUP PO ONE (21:31)
--- NOTE | 2022-08-27 21:37 | XR ---
EXAMINATION TYPE: XR chest 2V DATE OF EXAM: 08/27/2022 COMPARISON: NONE HISTORY: Weakness TECHNIQUE: 2 views FINDINGS: There is no heart failure nor confluent pneumonic infiltrate. Thoracic aorta is atheromatou s. There are no hilar masses. Costophrenic angles are clear. IMPRESSION: No active cardiopulmonary disease. Atheromatous aorta. Normal heart.
[2022-08-27] MEDS ORDERED: SODIUM BICARB 8.4% 50 ML SYR (1 MEQ/ML) IV ONE (21:45)
[2022-08-27] MEDS ORDERED: ALBUTEROL NEB (CONC) 2.5 MG/0.5 ML INHALATION ONE (21:45)
[2022-08-27] MEDS ORDERED: CALCIUM GLUCONATE IN NACL 1 GM in SALINE 1 100ML.BAG IVPB ONE (21:45)
[2022-08-27] MEDS ORDERED: SODIUM CHLORIDE 0.9% 1,000 ML IV ONE (21:45)
[2022-08-27] MEDS ORDERED: NALOXONE 0.4 MG/ML 1 ML VIAL IV PRN (23:45)
--- NOTE | 2022-08-27 23:48 | US ---
EXAMINATION TYPE: US gallbladder DATE OF EXAM: 08/27/2022 COMPARISON: NONE CLINICAL HISTORY: liver failure. Liver failure TECHNIQUE: Multiple sonographic images of the right upper quadrant are obtained. FINDINGS: EXAM MEASUREMENTS: Liver Length: 16.9 cm Gallbladder Wall: 0.7 cm CBD: 0.8 cm Right Kidney: 11.6 x 4.1 x 4.5 cm MATERIAL HAULER NOTES: Pancreas: Heterogeneous. Duct measuring 2.5mm Liver: Heterogeneous, nodular Gallbladder: Hydropic, thickened wall Evidence for sonographic Dewitt's sign: No CBD: Upper limits of normal Right Kidney: wnl Gallbladder measures 13 x 4.5 cm. IMPRESSION: dilated gallbladder and mildly dilated common bile duct suggestive of gallbladder dysfunction. No di lation of the intrahepatic bile ducts. No gallstones. Mild gallbladder wall thickening. This could be a acalculus cholecystitis.
[2022-08-28] MEDS ORDERED: LORazepam 2 MG/ML INJ IV STA (00:19)
[2022-08-28 00:32] LABS: ALT 244 U/L (4-49); African American GFR (CKD) 7 (>60 ml/min/1.73 sqM); Albumin 2.6 g/dL (3.5-5.0); Alkaline Phosphatase 179 U/L (38-126); Anion Gap 18 mmol/L; Blood Urea Nitrogen 97 mg/dL (9-20); Calcium 8.4 mg/dL (8.4-10.2); Carbon Dioxide 10 mmol/L (22-30); Chloride 107 mmol/L (98-107); Glucose 91 mg/dL (74-99); Non-African American GFR(CKD) 6 (>60 ml/min/1.73 sqM); Sodium 135 mmol/L (137-145)
[2022-08-28 00:42] LABS: Appearance,Urine Cloudy (Clear); Bacteria,Urine Occasional /hpf; Bilirubin,Urine 2+ (Negative); Blood,Urine Moderate (Negative); Color,Urine Dark Brown; Glucose,Urine (UA) Negative (Negative); Ketones,Urine Negative (Negative); Leukocyte Esterase,Urine Trace (Negative); Nitrite,Urine Negative (Negative); PH, Urine 5.5 (5.0-8.0); Protein,Urine 1+ (Negative); RBC,Urine 15 /hpf (0-5); Squamous Epithelial Cell,Urine <1 /hpf (0-4); WBC,Urine 4 /hpf (0-5)
[2022-08-28 01:03] LABS: AST 1583 U/L (17-59)
[2022-08-28 01:04] LABS: Potassium 7.3 mmol/L (3.5-5.1); Total Bilirubin 17.6 mg/dL (0.2-1.3)
[2022-08-28 01:05] LABS: Acetaminophen <10.0 ug/mL; Total Protein 5.8 g/dL (6.3-8.2)
--- NOTE | 2022-08-28 01:25 | P.HPIM ---
History of Present Illness H&P Date: 08/27/22 Chief Complaint: altered mental status patient is confused but awake, unable to provide any meaningful history patient and daughter at bed side, providing the history, they report that he was doing well up until 3 weeks ago when he had his routine colonoscopy , and found two polyps (unknown pathology result). since then he has been declining. 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 however, they found him down on the bathroom floor for which they brought him in for evaluation he used to drink daily about a pint of rum, he quit cold [employer] in preperation for his colonoscopy. today , he seemed way off to the family , sleeping a lot , confused, and very weak and tired, for which they brought him for evaluation patient grossly jaundiced , and when brought to the family attention, they seem to be surprised to see him like this and claim that they have never noticed that until the medical staff brought it up. they noticed decrease appetite, and fatigue, with report of back pain , denies any chest pain , trouble breathing, GI bleeding , changes in bowel or urinary habits. admits to smoking daily , and heavy drinking , but no illicit drugs blood work showed anemia with macrocytosis and thrombocytopenia advanced liver cirrhosis / failure , with elevated INR, hypoalbuminemia , hyperammonemia , elevated bilirubin significantly , hepatorenal syndrome with elevated Creatinine , hyperkalemia , lactic acidosis , Brain CT negative for acute pathology Review of Systems ROS unobtainable: due to mental status Past Medical History Past Medical History: Hyperlipidemia, Hypertension, Osteoarthritis (OA) Additional Past Medical History / Comment(s): Gout, hard of hearing, gait disturbance History of Any Multi-Drug Resistant Organisms: None Reported Past Surgical History: Hernia Repair, Tonsillectomy Additional Past Surgical History / Comment(s): LEFT INGUINAL HERNIA X2, Past Anesthesia/Blood Transfusion Reactions: No Reported Reaction Past Psychological History: No Psychological Hx Reported Past Alcohol Use History: Daily, Heavy Past Drug Use History: None Reported - Past Family History Father Family Medical History: Cancer, Diabetes Mellitus Additional Family Medical History / Comment(s): PROSTATE CANCER Mother Family Medical History: Hypertension Medications and Allergies Home Medications Medication Instructions Recorded Confirmed Type Acetaminophen [Tylenol Arthritis] 1,300 mg PO Q8HR PRN 03/29/18 04/05/18 History Aspirin 81 mg PO DAILY 03/29/18 04/05/18 History Glucosam/Silvio-Msm1/C/Jesus Alberto/Bosw 1 tab PO DAILY 03/29/18 04/05/18 History [Glucosamine-Chondroitin Tablet] Lisinopril-Hctz 10-12.5 mg 1 tab PO DAILY 03/29/18 04/05/18 History [Zestoretic 10-12.5] Multivitamin [Men's Multi-Vitamin] 1 tab PO DAILY 03/29/18 04/05/18 History Simvastatin [Zocor] 80 mg PO HS 03/29/18 04/05/18 History allopurinoL [Zyloprim] 300 mg PO DAILY 03/29/18 04/05/18 History atenoloL [Tenormin] 100 mg PO DAILY 03/29/18 04/05/18 History Co Q-10 60mg 60 mg PO DAILY 04/05/18 04/05/18 History Aspirin 325 mg PO BID #60 tab 04/06/18 Rx HYDROcodone/APAP 5-325MG [[place] 1 - 2 tab PO Q4-6H PRN #60 tab 04/06/18 Rx 5-325] Sennosides [Senokot] 1 tab PO BID #60 tablet 04/06/18 Rx Allergies Allergy/AdvReac Type Severity Reaction Status Date / Time No Known Allergies Allergy Verified 04/05/18 16:55 Physical Exam Vitals: Vital Signs Temp Pulse Resp BP Pulse Ox 08/27/22 21:19 54 L 20 127/49 100 08/27/22 19:49 97.6 F 58 L 18 104/36 99 Intake and Output 08/27/22 08/27/22 08/27/22 06:59 14:59 22:59 Other: Weight 81.647 kg Constitutional: No acute distress, confused , deeply jaundiced Eyes: scleral jaundice , moist conjunctiva, Pupils equal round reactive to light ENMT: NC/AT Oropharynx clear, no erythema, or exudates Neck: Supple, no masses, or JVD No carotid bruits No thyromegaly Lungs: Clear to auscultation Clear to percussion Normal respiratory effort, no accessory muscle use Cardiovascular: Heart regular in rate and rhythm, No murmurs, gallops, or rubs No peripheral edema Abdominal: Soft Nontender, no guarding, rebound or rigidity Abdomen moving with respiration Normoactive bowel sounds No hepatomegaly, No splenomegaly No palpable mass No abdominal wall hernia noted Skin: deeply jaundiced , otherwise Normal temperature, tone, texture, turgor Extremities: No digital cyanosis No clubbing Pedal pulses intact and symmetrical Radial pulses intact and symmetrical No calf tenderness Psychiatric: awake , but confused Neuro positive asetrixis Muscles Strength 4/5 in all 4 extremities Sensation to light touch grossly present throughout Cranial nerves II-XII grossly intact Lymphatics: no palpable cervical or supraclavicular lymph nodes Results CBC & Chem 7: 08/27/22 20:16 08/27/22 20:16 Labs: Abnormal Lab Results - Last 24 Hours (Table) 08/27/22 08/27/22 08/27/22 Range/Units 20:16 20:16 20:16 RBC 3.17 L (4.30-5.90) m/uL Hgb 12.0 L (13.0-17.5) gm/dL Hct 36.5 L (39.0-53.0) % MCV 115.0 H (80.0-100.0) fL MCH 37.9 H (25.0-35.0) pg RDW 17.1 H (11.5-15.5) % Plt Count 149 L D (150-450) k/uL Macrocytosis Marked A PT 51.2 H (9.0-12.0) sec INR 5.1 H* (<1.2) Sodium 133 L (137-145) mmol/L Potassium 8.2 H* (3.5-5.1) mmol/L Carbon Dioxide 10 L (22-30) mmol/L BUN 102 H* (9-20) mg/dL Creatinine 8.34 H* (0.66-1.25) mg/dL Plasma Lactic Acid Emmanuel (0.7-2.0) mmol/L Magnesium 3.0 H (1.6-2.3) mg/dL Total Bilirubin 18.0 H* (0.2-1.3) mg/dL AST 1637 H (17-59) U/L ALT 252 H (4-49) U/L Alkaline Phosphatase 182 H (38-126) U/L Ammonia (<30) umol/L Total Protein 6.0 L (6.3-8.2) g/dL Albumin 2.7 L (3.5-5.0) g/dL Lipase 5443 H (23-300) U/L 08/27/22 Range/Units 20:16 RBC (4.30-5.90) m/uL Hgb (13.0-17.5) gm/dL Hct (39.0-53.0) % MCV (80.0-100.0) fL MCH (25.0-35.0) pg RDW (11.5-15.5) % Plt Count (150-450) k/uL Macrocytosis PT (9.0-12.0) sec INR (<1.2) Sodium (137-145) mmol/L Potassium (3.5-5.1) mmol/L Carbon Dioxide (22-30) mmol/L BUN (9-20) mg/dL Creatinine (0.66-1.25) mg/dL Plasma Lactic Acid Emmanuel 5.8 H* (0.7-2.0) mmol/L Magnesium (1.6-2.3) mg/dL Total Bilirubin (0.2-1.3) mg/dL AST (17-59) U/L ALT (4-49) U/L Alkaline Phosphatase (38-126) U/L Ammonia 71 H (<30) umol/L Total Protein (6.3-8.2) g/dL Albumin (3.5-5.0) g/dL Lipase (23-300) U/L Assessment and Plan Assessment: acute hepatic encephalopathy advanced liver cirrhosis and failure hepatorenal syndrome history of alcohol abuse macrocytic anemia hyperkalemia (given Calcium gluconate , albuterol in the ED) anion gap metabolic acidosis lactic acidosis plan monitor electrolytes, Mg, Po4, liver function , coag panel , ammonia level CBC daily lactulose target 3-5 bowel movement per day monitor blood sugar fall precautions monitor vital signs encourage PO intake check hepatitis panel check gall bladder US check acetaminophen level PPI bid for GI PPX monitor for GI bleeding check hepatic venous US rule out bud chiari syndrome full code DVT PPX mechanical
[2022-08-28] MEDS ORDERED: DEXTROSE 5% IN WATER 1,000 ML with SODIUM BICARB (1 MEQ/ML) 150 ML IV SCH (01:30)
[2022-08-28] MEDS ORDERED: ALBUTEROL NEBULIZED (CONC) 10 MG, SODIUM CHLORIDE 0.9% NEBULIZ 3 ML INHALATION STA ×2 (03:13)
[2022-08-28] MEDS ORDERED: DEXTROSE 50% SYRINGE 50 ML IVP STA (03:13)
[2022-08-28] MEDS ORDERED: INSULIN REGULAR 100 UNIT/ML VIAL (IV) IV ONE (03:13)
[2022-08-28 04:43] LABS: Glucose,Whole Blood 151 mg/dL (70-110)
[2022-08-28 06:01] LABS: Anisocytosis Slight; HCT 33.1 % (39.0-53.0); Hypochromasia Moderate; MCH 38.6 pg (25.0-35.0); MCHC 33.3 g/dL (31.0-37.0); Macrocytosis Marked; Platelet Count 136 k/uL (150-450); RBC 2.85 m/uL (4.30-5.90); RDW 16.7 % (11.5-15.5); WBC 9.6 k/uL (3.8-10.6)
[2022-08-28 06:11] LABS: Albumin 2.5 g/dL (3.5-5.0); Calcium 8.2 mg/dL (8.4-10.2); Magnesium 2.9 mg/dL (1.6-2.3); Potassium 5.6 mmol/L (3.5-5.1); Total Protein 5.6 g/dL (6.3-8.2)
[2022-08-28 06:14] LABS: Prothrombin Time 40.3 sec (9.0-12.0)
[2022-08-28 06:29] LABS: Phosphorus 9.4 mg/dL (2.5-4.5); Total Bilirubin 18.1 mg/dL (0.2-1.3)
--- NOTE | 2022-08-28 07:24 | P.CONS ---
History of Present Illness - Reason for Consult Consult date: 08/28/22 Liver failure Requesting physician: Jose Nunez - Chief Complaint confusion - History of Present Illness 59-year-old male who was brought into the emergency department for confusion. Unable to obtain history from patient as he is alert awake however he is not kaylene rt or oriented. Apparently patient has a history of alcohol abuse. Wearing to the chart in his H&P, and daughter were at the bedside when patient came in. They had stated that he drinks a pint from daily, quit August 12 in preparation for colonoscopy. 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 Apparently they had found the patient in the bathroom on the floor confused. He was brought in for further evaluation. He was noted to have elevated LFTs as well as acute kidney injury on admission. Ammonia level was 84 and he was given 1 dose of lactulose 30 g however has not had a bowel movement yet. Upon examining he is lying in bed, he has not responding to any questions, he seems nontender in the abdomen. In no lower extremity swelling. Reviewing his medication list does not appear that he's been on any diuretics at home. Labs WBC 9.6 hemoglobin 11 hematocrit 33 platelet count 136,000 INR 4.0 sodium 137 potassium 5.6 BUN 101 creatinine 8.5 glucose 113 lactic acid 5.5 total bilirubin 18 AST 1514 ALT 252 alkaline phosphatase 164 ammonia 87 Gallbladder ultrasound reports dilated gallbladder mildly dilated common bile duct suggestive of gallbladder dysfunction. No dilation of the intrahepatic bile ducts. No gallstones. Mild gallbladder wall thickening. This could be acalculous cholecystitis. Liver Doppler ultrasound reports no evidence for to suggest Budd-Chiari syndrome Review of Systems ROS unobtainable: due to mental status Past Medical History Past Medical History: Hyperlipidemia, Hypertension, Osteoarthritis (OA) Additional Past Medical History / Comment(s): Gout, hard of hearing, gait disturbance History of Any Multi-Drug Resistant Organisms: None Reported Past Surgical History: Hernia Repair, Tonsillectomy Additional Past Surgical History / Comment(s): LEFT INGUINAL HERNIA X2, Past Anesthesia/Blood Transfusion Reactions: No Reported Reaction Past Psychological History: No Psychological Hx Reported Past Alcohol Use History: Daily, Heavy Past Drug Use History: None Reported - Past Family History Father Family Medical History: Cancer, Diabetes Mellitus Additional Family Medical History / Comment(s): PROSTATE CANCER Mother Family Medical History: Hypertension Medications and Allergies Home Medications Medication Instructions Recorded Confirmed Type Glucosam/Silvio-Msm1/C/Jesus Alberto/Bosw 1 tab PO DAILY 03/29/18 08/28/22 History [Glucosamine-Chondroitin Tablet] Multivitamin [Men's Multi-Vitamin] 1 tab PO DAILY 03/29/18 08/28/22 History allopurinoL [Zyloprim] 300 mg PO DAILY 03/29/18 08/28/22 History atenoloL [Tenormin] 100 mg PO DAILY 03/29/18 08/28/22 History Lisinopril-Hctz 20-12.5 mg 1 tab PO DAILY 08/28/22 08/28/22 History [Zestoretic 20-12.5] Milk Thistle 150 mg PO DAILY 08/28/22 08/28/22 History Vit C/E/Zn/Coppr/Lutein/Zeaxan 1 cap PO DAILY 08/28/22 08/28/22 History [Preservision Areds 2 Softgel] amLODIPine [Norvasc] 5 mg PO DAILY 08/28/22 08/28/22 History Allergies Allergy/AdvReac Type Severity Reaction Status Date / Time No Known Allergies Allergy Verified 08/28/22 08:25 Physical Exam Vitals: Vital Signs Temp Pulse Resp BP Pulse Ox 08/28/22 05:20 97.8 F 62 20 100/50 100 08/28/22 04:55 56 L 08/28/22 04:42 58 L 08/27/22 22:43 61 08/27/22 22:29 60 08/27/22 21:19 54 L 20 127/49 100 08/27/22 19:49 97.6 F 58 L 18 104/36 99 Intake and Output 08/27/22 08/28/22 08/28/22 22:59 06:59 14:59 Other: Weight 81.647 kg General appearance: The patient is alert, patient is not oriented, appears in no acute distress. HET: Head is normocephalic and atraumatic. Conjunctiva pink. Sclera deeply icteric. Neck: Supple without lymphadenopathy. Trachea midline. Heart: S1 S2. Regular rate and rhythm. Lungs: Clear to auscultation. Abdomen: Soft, nontender, nondistended with bowel sounds. No guarding or rigidity. Skin: No rashes. Significantly jaundiced. Extremities: Normal skin color and turgor. No pedal edema. Neurological: Awake, not orientated, very confused. Results CBC & Chem 7: 08/28/22 05:33 08/28/22 05:33 Labs: Abnormal Lab Results - Last 24 Hours (Table) 08/27/22 08/27/22 08/27/22 Range/Units 20:16 20:16 20:16 RBC 3.17 L (4.30-5.90) m/uL Hgb 12.0 L (13.0-17.5) gm/dL Hct 36.5 L (39.0-53.0) % MCV 115.0 H (80.0-100.0) fL MCH 37.9 H (25.0-35.0) pg RDW 17.1 H (11.5-15.5) % Plt Count 149 L D (150-450) k/uL Macrocytosis Marked A PT 51.2 H (9.0-12.0) sec INR 5.1 H* (<1.2) Sodium 133 L (137-145) mmol/L Potassium 8.2 H* (3.5-5.1) mmol/L Carbon Dioxide 10 L (22-30) mmol/L BUN 102 H* (9-20) mg/dL Creatinine 8.34 H* (0.66-1.25) mg/dL Glucose (74-99) mg/dL POC Glucose (mg/dL) (70-110) mg/dL Plasma Lactic Acid Emmanuel (0.7-2.0) mmol/L Calcium (8.4-10.2) mg/dL Phosphorus (2.5-4.5) mg/dL Magnesium 3.0 H (1.6-2.3) mg/dL Total Bilirubin 18.0 H* (0.2-1.3) mg/dL AST 1637 H (17-59) U/L ALT 252 H (4-49) U/L Alkaline Phosphatase 182 H (38-126) U/L Ammonia (<30) umol/L Total Protein 6.0 L (6.3-8.2) g/dL Albumin 2.7 L (3.5-5.0) g/dL Lipase 5443 H (23-300) U/L Urine Protein (Negative) Urine Blood (Negative) Urine Bilirubin (Negative) Ur Leukocyte Esterase (Negative) Urine RBC (0-5) /hpf Urine Bacteria (None) /hpf 08/27/22 08/27/22 08/28/22 Range/Units 20:16 23:32 00:05 RBC (4.30-5.90) m/uL Hgb (13.0-17.5) gm/dL Hct (39.0-53.0) % MCV (80.0-100.0) fL MCH (25.0-35.0) pg RDW (11.5-15.5) % Plt Count (150-450) k/uL Macrocytosis PT (9.0-12.0) sec INR (<1.2) Sodium 135 L (137-145) mmol/L Potassium 7.3 H* (3.5-5.1) mmol/L Carbon Dioxide 10 L (22-30) mmol/L BUN 97 H (9-20) mg/dL Creatinine 8.40 H* (0.66-1.25) mg/dL Glucose (74-99) mg/dL POC Glucose (mg/dL) (70-110) mg/dL Plasma Lactic Acid Emmanuel 5.8 H* 6.1 H* (0.7-2.0) mmol/L Calcium (8.4-10.2) mg/dL Phosphorus (2.5-4.5) mg/dL Magnesium (1.6-2.3) mg/dL Total Bilirubin 17.6 H* (0.2-1.3) mg/dL AST 1583 H (17-59) U/L ALT 244 H (4-49) U/L Alkaline Phosphatase 179 H (38-126) U/L Ammonia 71 H (<30) umol/L Total Protein 5.8 L (6.3-8.2) g/dL Albumin 2.6 L (3.5-5.0) g/dL Lipase (23-300) U/L Urine Protein (Negative) Urine Blood (Negative) Urine Bilirubin (Negative) Ur Leukocyte Esterase (Negative) Urine RBC (0-5) /hpf Urine Bacteria (None) /hpf 08/28/22 08/28/22 08/28/22 Range/Units 00:12 02:03 04:41 RBC (4.30-5.90) m/uL Hgb (13.0-17.5) gm/dL Hct (39.0-53.0) % MCV (80.0-100.0) fL MCH (25.0-35.0) pg RDW (11.5-15.5) % Plt Count (150-450) k/uL Macrocytosis PT (9.0-12.0) sec INR (<1.2) Sodium (137-145) mmol/L Potassium 7.6 H* (3.5-5.1) mmol/L Carbon Dioxide (22-30) mmol/L BUN (9-20) mg/dL Creatinine (0.66-1.25) mg/dL Glucose (74-99) mg/dL POC Glucose (mg/dL) 151 H (70-110) mg/dL Plasma Lactic Acid Emmanuel (0.7-2.0) mmol/L Calcium (8.4-10.2) mg/dL Phosphorus (2.5-4.5) mg/dL Magnesium (1.6-2.3) mg/dL Total Bilirubin (0.2-1.3) mg/dL AST (17-59) U/L ALT (4-49) U/L Alkaline Phosphatase (38-126) U/L Ammonia (<30) umol/L Total Protein (6.3-8.2) g/dL Albumin (3.5-5.0) g/dL Lipase (23-300) U/L Urine Protein 1+ H (Negative) Urine Blood Moderate H (Negative) Urine Bilirubin 2+ H (Negative) Ur Leukocyte Esterase Trace H (Negative) Urine RBC 15 H (0-5) /hpf Urine Bacteria Occasional H (None) /hpf 08/28/22 08/28/22 08/28/22 Range/Units 05:33 05:33 05:33 RBC 2.85 L (4.30-5.90) m/uL Hgb 11.0 L (13.0-17.5) gm/dL Hct 33.1 L (39.0-53.0) % MCV 116.0 H (80.0-100.0) fL MCH 38.6 H (25.0-35.0) pg RDW 16.7 H (11.5-15.5) % Plt Count 136 L (150-450) k/uL Macrocytosis Marked A PT 40.3 H (9.0-12.0) sec INR 4.0 H (<1.2) Sodium (137-145) mmol/L Potassium 5.6 H (3.5-5.1) mmol/L Carbon Dioxide 14 L (22-30) mmol/L BUN 101 H* (9-20) mg/dL Creatinine 8.50 H* (0.66-1.25) mg/dL Glucose 113 H (74-99) mg/dL POC Glucose (mg/dL) (70-110) mg/dL Plasma Lactic Acid Emmanuel (0.7-2.0) mmol/L Calcium 8.2 L (8.4-10.2) mg/dL Phosphorus 9.4 H* (2.5-4.5) mg/dL Magnesium 2.9 H (1.6-2.3) mg/dL Total Bilirubin 18.1 H* (0.2-1.3) mg/dL AST 1514 H (17-59) U/L ALT 252 H (4-49) U/L Alkaline Phosphatase 164 H (38-126) U/L Ammonia (<30) umol/L Total Protein 5.6 L (6.3-8.2) g/dL Albumin 2.5 L (3.5-5.0) g/dL Lipase (23-300) U/L Urine Protein (Negative) Urine Blood (Negative) Urine Bilirubin (Negative) Ur Leukocyte Esterase (Negative) Urine RBC (0-5) /hpf Urine Bacteria (None) /hpf 08/28/22 08/28/22 Range/Units 05:33 05:33 RBC (4.30-5.90) m/uL Hgb (13.0-17.5) gm/dL Hct (39.0-53.0) % MCV (80.0-100.0) fL MCH (25.0-35.0) pg RDW (11.5-15.5) % Plt Count (150-450) k/uL Macrocytosis PT (9.0-12.0) sec INR (<1.2) Sodium (137-145) mmol/L Potassium (3.5-5.1) mmol/L Carbon Dioxide (22-30) mmol/L BUN (9-20) mg/dL Creatinine (0.66-1.25) mg/dL Glucose (74-99) mg/dL POC Glucose (mg/dL) (70-110) mg/dL Plasma Lactic Acid Emmanuel 5.5 H* (0.7-2.0) mmol/L Calcium (8.4-10.2) mg/dL Phosphorus (2.5-4.5) mg/dL Magnesium (1.6-2.3) mg/dL Total Bilirubin (0.2-1.3) mg/dL AST (17-59) U/L ALT (4-49) U/L Alkaline Phosphatase (38-126) U/L Ammonia 87 H (<30) umol/L Total Protein (6.3-8.2) g/dL Albumin (3.5-5.0) g/dL Lipase (23-300) U/L Urine Protein (Negative) Urine Blood (Negative) Urine Bilirubin (Negative) Ur Leukocyte Esterase (Negative) Urine RBC (0-5) /hpf Urine Bacteria (None) /hpf Comments: Gallbladder ultrasound reports dilated gallbladder mildly dilated common bile duct suggestive of gallbladder dysfunction. No dilation of the intrahepatic bile ducts. No gallstones. Mild gallbladder wall thickening. This could be acalculous cholecystitis. Liver Doppler ultrasound reports no evidence for to suggest Budd-Chiari syndrome Assessment and Plan (1) Acute alcoholic hepatitis Narrative/Plan: 67-year-old male with reported past medical history including significant amount of alcohol abuse, drinking 1 pint of from daily. Patient was found to be confu sed, on the bathroom floor by his family. Patient likely has acute alcoholic hepatitis with underlying liver disease related to alcohol. Hepatic encephalopathy related to the above. Patient also has acute kidney injury likely related to underlying liver disease. There is no gastroenterology avai lable in house after today, will defer further management to medical team as well as recommendations from nephrology. Current Visit: Yes Status: Acute Code(s): K70.10 - ALCOHOLIC HEPATITIS WITHOUT ASCITES SNOMED Code(s): 8664095 (2) Hepatic encephalopathy Narrative/Plan: Lactulose 30 g 3 doses given every hour until patient has bowel movement. Then recommend 30 g 3 times a day titrate to have 3-4 bowel movements daily. Recommend daily ammonia, CMP Current Visit: Yes Status: Acute Code(s): K76.82 - HEPATIC ENCEPHALOPATHY SNOMED Code(s): 47140925 (3) Alcohol abuse Current Visit: Yes Status: Acute Code(s): F10.10 - ALCOHOL ABUSE, UNCOMPLIC ATED SNOMED Code(s): 07011244 (4) Acute kidney injury Narrative/Plan: Nephrology on consult. Defer management to their service. Current Visit: Yes Status: Acute Code(s): N17.9 - ACUTE KIDNEY FAILURE, UNSPECIFIED SNOMED Code(s): 27419569 Plan: 1. Continue symptomatic and supportive care 2. Give lactulose 30 g every hour 3 doses 3. Lactulose 30 g 3 times a day, titrate to 3-4 bowel movements daily 4. Recommend daily ammonia level, CBC, INR, and CMP 5. Alcohol abstinence 6. Gastroenterology is off service as of today. We'll defer further management to medical team and nephrology 7. Recommend outpatient follow-up with gastroenterology to follow liver disease Thank you for allowing us to participate in the care of the patient, the GI service will sign off, gastroenterology will not be available at the hospital this weekend and through next week. If further evaluation by gastroenterology is required the patient will need transfer as per the primary team's discretion. Dr. Yamileth Echols I agree with the dictator's note, documented as a scribe by Rosi Murphy.
[2022-08-28] MEDS ORDERED: PANTOPRAZOLE 40 MG TABLET PO SCH (07:30)
--- NOTE | 2022-08-28 08:30 | US ---
EXAMINATION TYPE: US liver doppler DATE OF EXAM: 08/28/2022 COMPARISON: NONE CLINICAL HISTORY: rule out Budd-Chiari syndrome. RUQ ABDOMINAL ULTRASOUND RUQ ultrasound done 8 hours prior LIVER DOPPLER ULTRASOUND Technically difficult and limited study due to patient disoriented and moving during exam, unable t o roll onto his side and unable to hold breath Portal vein Main Portal Vein diameter: 12.1 mm Flow direction: Hepatopetal Color flow patency seen within the main portal vein: yes IVC/Hepatic Veins Color flow patency seen within visualized portions of IVC: yes Color flow patency seen within visualized portions of right hepatic vein: yes Color flow patency seen within visualized portions of middle hepatic vein: yes Color flow patency seen within visualized portions of left hepatic vein: yes IMPRESSION: No evidence for to suggest Budd-Chiari syndrome
[2022-08-28 08:58] LABS: ABG Base Excess -12.8 mmol/L; ABG HCO3 13 mmol/L (21-25); ABG Oxygen Saturation 98.8 % (94-97); ABG PCO2 22 mmHg (35-45); ABG PH 7.36 (7.35-7.45); ABG PO2 108 mmHg (83-108); ABG TCO2 13 mmol/L (19-24); Allen Test Performed? Yes
[2022-08-28] MEDS ORDERED: ALBUMIN HUMAN 25% 50 ML in EMPTY BAG 1 BAG IVPB SCH (09:00)
--- NOTE | 2022-08-28 09:52 | US ---
EXAMINATION TYPE: US kidneys/renal and bladder DATE OF EXAM: 08/28/2022 COMPARISON: NONE CLINICAL HISTORY: marina. MARINA EXAM MEASUREMENTS: Right Kidney: 10.5 x 4.0 x 4.7 cm Left Kidney: 9.7 x 4.9 x 4.6 cm Right Kidney: no evidence of hydronephrosis Left Kidney: limited evaluation due to patient's condition, unable to rotate from supine position. po rtions obscured by overlying bowel content, no evidence of hydronephrosis as visualized Bladder: Rosales Catheter There is no evidence for hydronephrosis at this point in time. No nephrolithiasis is seen. No jesus s are identified. The urinary bladder is anechoic. Bilateral ureteral jets are seen. IMPRESSION: 1. No evidence of obstructive uropathy. 2. Limit evaluation of the left kidney.
[2022-08-28] MEDS ORDERED: ARTIFICIAL TEARS-HYPROMELLOSE DROPS 15 ML BTL BOTH EYES PRN (10:07)
[2022-08-28] MEDS ORDERED: HYDROmorphone 1 MG/ML 1 ML SYRINGE IVP PRN (10:07)
[2022-08-28] MEDS ORDERED: HALOPERIDOL LACTATE 5 MG/ML 1 ML VIAL IVP PRN (10:07)
[2022-08-28] MEDS ORDERED: ATROPINE OPHTH SOLN 1% 5ML BTL SUBLINGUAL PRN (10:07)
[2022-08-28] MEDS ORDERED: HYDROcodone/APAP 5-325MG 1 EACH TAB PO PRN (10:07)
[2022-08-28] MEDS ORDERED: ONDANSETRON 4 MG/2 ML VIAL IVP PRN (10:07)
[2022-08-28] MEDS ORDERED: ACETAMINOPHEN TAB 325 MG TAB PO PRN (10:07)
[2022-08-28] MEDS ORDERED: GLYCOPYRROLATE 0.2 MG/ML 2 ML VIAL IVP PRN (10:07)
[2022-08-28] MEDS ORDERED: METOCLOPRAMIDE 5 MG/ML 2 ML VIAL IVP PRN (10:07)
[2022-08-28] MEDS ORDERED: DRY MOUTH SPRAY 44.3 SPRAY/44.3 ML SPRAY MUCOUS MEM PRN (10:07)
[2022-08-28] MEDS ORDERED: LORazepam 2 MG/ML INJ IV PRN (10:07)
[2022-08-28] MEDS ORDERED: MORPHINE SULFATE (100 MG/2 ML) 100 MG in SODIUM CHLORIDE 0.9% 100 ML IV SCH (10:15)
[2022-08-28] MEDS ORDERED: SCOPOLAMINE 1 MG/72 HR PATCH TRANSDERM SCH (10:15)
[2022-08-28] MEDS: LACTULOSE 20 GM/30 ML CUP PO SCH ×2 (10:38→10:39)
--- NOTE | 2022-08-28 11:21 | P.NPCON ---
History of Present Illness - Reason for Consult acute renal failure - History of Present Illness Patient is a 67-year-old male with history of EtOH abuse. Patient is brought into the hospital with mental status changes increased weakness and decreased oral intake. According to the family patient has not been eating much for a few weeks now. He has becoming progressively weak and they found him on the bathroom floor. Patient did not hit his head and they were able to somehow rolled him back to the bed. No history of kidney diseases Patient is grossly jaundiced Serum creatinine 8.5 mg/dL BUN was 101. Lactic acid 5.3. Potassium was 8.2 on Initial admission, down to 5.6 now Total bilirubin 18.1. A Rosales catheter has been placed however I do not see much urine output. Review of Systems As per HPI. Other systems negative Past Medical History Past Medical History: Hyperlipidemia, Hypertension, Osteoarthritis (OA) Additional Past Medical History / Comment(s): Gout, hard of hearing, gait disturbance History of Any Multi-Drug Resistant Organisms: None Reported Past Surgical History: Hernia Repair, Tonsillectomy Additional Past Surgical History / Comment(s): LEFT INGUINAL HERNIA X2, Past Anesthesia/Blood Transfusion Reactions: No Reported Reaction Past Psychological History: No Psychological Hx Reported Past Alcohol Use History: Daily, Heavy Past Drug Use History: None Reported - Past Family History Father Family Medical History: Cancer, Diabetes Mellitus Additional Family Medical History / Comment(s): PROSTATE CANCER Mother Family Medical History: Hypertension Medications and Allergies Home Medications Medication Instructions Recorded Confirmed Type Glucosam/Silvio-Msm1/C/Jesus Alberto/Bosw 1 tab PO DAILY 03/29/18 08/28/22 History [Glucosamine-Chondroitin Tablet] Multivitamin [Men's Multi-Vitamin] 1 tab PO DAILY 03/29/18 08/28/22 History allopurinoL [Zyloprim] 300 mg PO DAILY 03/29/18 08/28/22 History atenoloL [Tenormin] 100 mg PO DAILY 03/29/18 08/28/22 History Lisinopril-Hctz 20-12.5 mg 1 tab PO DAILY 08/28/22 08/28/22 History [Zestoretic 20-12.5] Milk Thistle 150 mg PO DAILY 08/28/22 08/28/22 History Vit C/E/Zn/Coppr/Lutein/Zeaxan 1 cap PO DAILY 08/28/22 08/28/22 History [Preservision Areds 2 Softgel] amLODIPine [Norvasc] 5 mg PO DAILY 08/28/22 08/28/22 History Allergies Allergy/AdvReac Type Severity Reaction Status Date / Time No Known Allergies Allergy Verified 08/28/22 08:25 Physical Exam Vitals: Vital Signs Temp Pulse Resp BP Pulse Ox 08/28/22 08:52 55 L 16 99/34 100 08/28/22 08:09 97.6 F 53 L 16 86/34 99 08/28/22 05:20 97.8 F 62 20 100/50 100 08/28/22 04:55 56 L 08/28/22 04:42 58 L 08/27/22 22:43 61 08/27/22 22:29 60 08/27/22 21:19 54 L 20 127/49 100 08/27/22 19:49 97.6 F 58 L 18 104/36 99 Intake and Output 08/27/22 08/28/22 08/28/22 22:59 06:59 14:59 Other: Weight 81.647 kg Patient is awake . He is drowsy but did answer to his name. Patient is not able to carry on a conversation. Examination of the heart S1 and S2 Examination of the lungs bilateral breath sounds are heard Abdomen is soft nontender Patient is grossly jaundiced Examination lower extremity shows no edema Patient is moving all 4 extremities. Results - Lab Results Most recent lab results ABG pH 7.36 (7.35-7.45) 08/28/22 08:50 ABG pCO2 22 mmHg (35-45) L 08/28/22 08:50 ABG pO2 108 mmHg (83-108) 08/28/22 08:50 ABG HCO3 13 mmol/L (21-25) L 08/28/22 08:50 ABG O2 Saturation 98.8 % (94-97) H 08/28/22 08:50 Calcium 8.2 mg/dL (8.4-10.2) L 08/28/22 05:33 Phosphorus 9.4 mg/dL (2.5-4.5) H* 08/28/22 05:33 Magnesium 2.9 mg/dL (1.6-2.3) H 08/28/22 05:33 08/28/22 05:33 08/28/22 05:33 Assessment and Plan Assessment: 1. Acute kidney injury ATN, ischemic as well as secondary to hyperbilirubinemia blood pressure has been as low as 80 systolic. Currently maintained on IV fluids. If urine output does not improve patient will need hemodialysis. Discussed with family 2. Hyperkalemia associated with acute kidney injury. Patient was on CLAUDE in hibitor's which are currently discontinued. No active GI bleed noted 3. Anion gap metabolic acidosis associated with lactic acidosis and acute kidney injury currently maintained on bicarb drip 4. Alcoholic liver disease 5. Alcoholic hepatitis with an element of ischemic hepatitis as well from hy potension 6. Hyperphosphatemia associated with acute kidney injury Plan: Continue with bicarb drip If there is no improvement in urine output patient will need hemodialysis. Discussed with family Increase bicarb drip to 100 mL an hour Repeat labs this evening Thank you for the consultation. We'll continue to follow the patient with you during his hospitalization
--- NOTE | 2022-08-28 11:42 | P.PN ---
Subjective Progress Note Date: 08/28/22 Patient is completely obtunded, cannot provide any meaningful history. I had a goals of care discussion with the family today who presented to bedside and informed them about patient's significant leak poor prognosis with and MELD score of 40 portending a 70.1% chance of mortality in the next 3 months although more likely patient will not make out of this admission. I explained that both his liver and his kidneys were doing extremely poorly and thus my recommendation for comfort care measures. Patient's family was amenable to this option, and patient will be seen by hospice and converted to comfort care. Gen: awake, not oriented HEENT: normocephalic, atraumatic, good hearing acuity, moist mucous membranes Resp: good air exchange, breathing comfortably with no accessory muscle use CVS: Poor distal perfusion x 4, GI: soft, NTTP, ND : no SPT, no CVAT, ambrosio catheter is present MSK: no pitting edema, no clubbing Neuro: non-focal, moving all extremities Assessment/plan: Acute hepatic encephalopathy Decompensated liver cirrhosis and failure Hepatorenal syndrome history of alcohol abuse macrocytic anemia hyperkalemia (given Calcium gluconate , albuterol in the ED) anion gap metabolic acidosis lactic acidosis Plan: Patient's care was converted to comfort oriented goals -Morphine drip -Morphine when necessary -Dilaudid when necessary -Ativan when necessary -Haldol when necessary -Scopolamine patch -Hospice consult -Change patient to no code Objective - Vital Signs Vital signs: Vital Signs Temp 97.6 F 08/28/22 08:09 Pulse 55 L 08/28/22 08:52 Resp 16 08/28/22 08:52 BP 99/34 08/28/22 08:52 Pulse Ox 100 08/28/22 08:52 FiO2 Intake & Output 08/27/22 08/28/22 08/28/22 18:59 06:59 18:59 Weight 81.647 kg - Labs CBC & Chem 7: 08/28/22 05:33 08/28/22 05:33 Labs: Abnormal Lab Results - Last 24 Hours (Table) 08/27/22 08/27/22 08/27/22 Range/Units 20:16 20:16 20:16 RBC 3.17 L (4.30-5.90) m/uL Hgb 12.0 L (13.0-17.5) gm/dL Hct 36.5 L (39.0-53.0) % MCV 115.0 H (80.0-100.0) fL MCH 37.9 H (25.0-35.0) pg RDW 17.1 H (11.5-15.5) % Plt Count 149 L D (150-450) k/uL Macrocytosis Marked A PT 51.2 H (9.0-12.0) sec INR 5.1 H* (<1.2) ABG pCO2 (35-45) mmHg ABG HCO3 (21-25) mmol/L ABG Total CO2 (19-24) mmol/L ABG O2 Saturation (94-97) % Sodium 133 L (137-145) mmol/L Potassium 8.2 H* (3.5-5.1) mmol/L Carbon Dioxide 10 L (22-30) mmol/L BUN 102 H* (9-20) mg/dL Creatinine 8.34 H* (0.66-1.25) mg/dL Glucose (74-99) mg/dL POC Glucose (mg/dL) (70-110) mg/dL Plasma Lactic Acid Emmanuel (0.7-2.0) mmol/L Calcium (8.4-10.2) mg/dL Phosphorus (2.5-4.5) mg/dL Magnesium 3.0 H (1.6-2.3) mg/dL Total Bilirubin 18.0 H* (0.2-1.3) mg/dL AST 1637 H (17-59) U/L ALT 252 H (4-49) U/L Alkaline Phosphatase 182 H (38-126) U/L Ammonia (<30) umol/L Total Protein 6.0 L (6.3-8.2) g/dL Albumin 2.7 L (3.5-5.0) g/dL Lipase 5443 H (23-300) U/L Urine Protein (Negative) Urine Blood (Negative) Urine Bilirubin (Negative) Ur Leukocyte Esterase (Negative) Urine RBC (0-5) /hpf Urine Bacteria (None) /hpf 08/27/22 08/27/22 08/28/22 Range/Units 20:16 23:32 00:05 RBC (4.30-5.90) m/uL Hgb (13.0-17.5) gm/dL Hct (39.0-53.0) % MCV (80.0-100.0) fL MCH (25.0-35.0) pg RDW (11.5-15.5) % Plt Count (150-450) k/uL Macrocytosis PT (9.0-12.0) sec INR (<1.2) ABG pCO2 (35-45) mmHg ABG HCO3 (21-25) mmol/L ABG Total CO2 (19-24) mmol/L ABG O2 Saturation (94-97) % Sodium 135 L (137-145) mmol/L Potassium 7.3 H* (3.5-5.1) mmol/L Carbon Dioxide 10 L (22-30) mmol/L BUN 97 H (9-20) mg/dL Creatinine 8.40 H* (0.66-1.25) mg/dL Glucose (74-99) mg/dL POC Glucose (mg/dL) (70-110) mg/dL Plasma Lactic Acid Emmanuel 5.8 H* 6.1 H* (0.7-2.0) mmol/L Calcium (8.4-10.2) mg/dL Phosphorus (2.5-4.5) mg/dL Magnesium (1.6-2.3) mg/dL Total Bilirubin 17.6 H* (0.2-1.3) mg/dL AST 1583 H (17-59) U/L ALT 244 H (4-49) U/L Alkaline Phosphatase 179 H (38-126) U/L Ammonia 71 H (<30) umol/L Total Protein 5.8 L (6.3-8.2) g/dL Albumin 2.6 L (3.5-5.0) g/dL Lipase (23-300) U/L Urine Protein (Negative) Urine Blood (Negative) Urine Bilirubin (Negative) Ur Leukocyte Esterase (Negative) Urine RBC (0-5) /hpf Urine Bacteria (None) /hpf 08/28/22 08/28/22 08/28/22 Range/Units 00:12 02:03 04:41 RBC (4.30-5.90) m/uL Hgb (13.0-17.5) gm/dL Hct (39.0-53.0) % MCV (80.0-100.0) fL MCH (25.0-35.0) pg RDW (11.5-15.5) % Plt Count (150-450) k/uL Macrocytosis PT (9.0-12.0) sec INR (<1.2) ABG pCO2 (35-45) mmHg ABG HCO3 (21-25) mmol/L ABG Total CO2 (19-24) mmol/L ABG O2 Saturation (94-97) % Sodium (137-145) mmol/L Potassium 7.6 H* (3.5-5.1) mmol/L Carbon Dioxide (22-30) mmol/L BUN (9-20) mg/dL Creatinine (0.66-1.25) mg/dL Glucose (74-99) mg/dL POC Glucose (mg/dL) 151 H (70-110) mg/dL Plasma Lactic Acid Emmanuel (0.7-2.0) mmol/L Calcium (8.4-10.2) mg/dL Phosphorus (2.5-4.5) mg/dL Magnesium (1.6-2.3) mg/dL Total Bilirubin (0.2-1.3) mg/dL AST (17-59) U/L ALT (4-49) U/L Alkaline Phosphatase (38-126) U/L Ammonia (<30) umol/L Total Protein (6.3-8.2) g/dL Albumin (3.5-5.0) g/dL Lipase (23-300) U/L Urine Protein 1+ H (Negative) Urine Blood Moderate H (Negative) Urine Bilirubin 2+ H (Negative) Ur Leukocyte Esterase Trace H (Negative) Urine RBC 15 H (0-5) /hpf Urine Bacteria Occasional H (None) /hpf 08/28/22 08/28/22 08/28/22 Range/Units 05:33 05:33 05:33 RBC 2.85 L (4.30-5.90) m/uL Hgb 11.0 L (13.0-17.5) gm/dL Hct 33.1 L (39.0-53.0) % MCV 116.0 H (80.0-100.0) fL MCH 38.6 H (25.0-35.0) pg RDW 16.7 H (11.5-15.5) % Plt Count 136 L (150-450) k/uL Macrocytosis Marked A PT 40.3 H (9.0-12.0) sec INR 4.0 H (<1.2) ABG pCO2 (35-45) mmHg ABG HCO3 (21-25) mmol/L ABG Total CO2 (19-24) mmol/L ABG O2 Saturation (94-97) % Sodium (137-145) mmol/L Potassium 5.6 H (3.5-5.1) mmol/L Carbon Dioxide 14 L (22-30) mmol/L BUN 101 H* (9-20) mg/dL Creatinine 8.50 H* (0.66-1.25) mg/dL Glucose 113 H (74-99) mg/dL POC Glucose (mg/dL) (70-110) mg/dL Plasma Lactic Acid Emmanuel (0.7-2.0) mmol/L Calcium 8.2 L (8.4-10.2) mg/dL Phosphorus 9.4 H* (2.5-4.5) mg/dL Magnesium 2.9 H (1.6-2.3) mg/dL Total Bilirubin 18.1 H* (0.2-1.3) mg/dL AST 1514 H (17-59) U/L ALT 252 H (4-49) U/L Alkaline Phosphatase 164 H (38-126) U/L Ammonia (<30) umol/L Total Protein 5.6 L (6.3-8.2) g/dL Albumin 2.5 L (3.5-5.0) g/dL Lipase (23-300) U/L Urine Protein (Negative) Urine Blood (Negative) Urine Bilirubin (Negative) Ur Leukocyte Esterase (Negative) Urine RBC (0-5) /hpf Urine Bacteria (None) /hpf 08/28/22 08/28/22 08/28/22 Range/Units 05:33 05:33 08:50 RBC (4.30-5.90) m/uL Hgb (13.0-17.5) gm/dL Hct (39.0-53.0) % MCV (80.0-100.0) fL MCH (25.0-35.0) pg RDW (11.5-15.5) % Plt Count (150-450) k/uL Macrocytosis PT (9.0-12.0) sec INR (<1.2) ABG pCO2 22 L (35-45) mmHg ABG HCO3 13 L (21-25) mmol/L ABG Total CO2 13 L (19-24) mmol/L ABG O2 Saturation 98.8 H (94-97) % Sodium (137-145) mmol/L Potassium (3.5-5.1) mmol/L Carbon Dioxide (22-30) mmol/L BUN (9-20) mg/dL Creatinine (0.66-1.25) mg/dL Glucose (74-99) mg/dL POC Glucose (mg/dL) (70-110) mg/dL Plasma Lactic Acid Emmanuel 5.5 H* (0.7-2.0) mmol/L Calcium (8.4-10.2) mg/dL Phosphorus (2.5-4.5) mg/dL Magnesium (1.6-2.3) mg/dL Total Bilirubin (0.2-1.3) mg/dL AST (17-59) U/L ALT (4-49) U/L Alkaline Phosphatase (38-126) U/L Ammonia 87 H (<30) umol/L Total Protein (6.3-8.2) g/dL Albumin (3.5-5.0) g/dL Lipase (23-300) U/L Urine Protein (Negative) Urine Blood (Negative) Urine Bilirubin (Negative) Ur Leukocyte Esterase (Negative) Urine RBC (0-5) /hpf Urine Bacteria (None) /hpf 08/28/22 Range/Units 09:32 RBC (4.30-5.90) m/uL Hgb (13.0-17.5) gm/dL Hct (39.0-53.0) % MCV (80.0-100.0) fL MCH (25.0-35.0) pg RDW (11.5-15.5) % Plt Count (150-450) k/uL Macrocytosis PT (9.0-12.0) sec INR (<1.2) ABG pCO2 (35-45) mmHg ABG HCO3 (21-25) mmol/L ABG Total CO2 (19-24) mmol/L ABG O2 Saturation (94-97) % Sodium (137-145) mmol/L Potassium (3.5-5.1) mmol/L Carbon Dioxide (22-30) mmol/L BUN (9-20) mg/dL Creatinine (0.66-1.25) mg/dL Glucose (74-99) mg/dL POC Glucose (mg/dL) (70-110) mg/dL Plasma Lactic Acid Emmanuel 5.3 H* (0.7-2.0) mmol/L Calcium (8.4-10.2) mg/dL Phosphorus (2.5-4.5) mg/dL Magnesium (1.6-2.3) mg/dL Total Bilirubin (0.2-1.3) mg/dL AST (17-59) U/L ALT (4-49) U/L Alkaline Phosphatase (38-126) U/L Ammonia (<30) umol/L Total Protein (6.3-8.2) g/dL Albumin (3.5-5.0) g/dL Lipase (23-300) U/L Urine Protein (Negative) Urine Blood (Negative) Urine Bilirubin (Negative) Ur Leukocyte Esterase (Negative) Urine RBC (0-5) /hpf Urine Bacteria (None) /hpf
[2022-08-28] MEDS ORDERED: MIDODRINE 5 MG TAB PO SCH (12:30)
[2022-08-28 14:34] LABS: Glucose,Whole Blood 121 mg/dL (70-110)
[2022-08-28] MEDS: MORPHINE SULFATE 4 MG/ML SYRINGE IV PRN ×3 (14:56→18:40)
[2022-08-28] MEDS ORDERED: LACTULOSE 20 GM/30 ML CUP PO SCH ×2 (16:00)
--- NOTE | 2022-08-28 16:13 | P.DS ---
Providers Date of admission: 08/27/22 23:45 Expected date of discharge: 08/28/22 Attending physician: Elise Gamino MD Consults: 08/27/22 23:45 Consult Physician Routine Consulting Provider: Katie Echols Consult Reason/Comments: Liver failure Do you want consulting provider notified?: Yes Consult Physician Routine Consulting Provider: Yaneth George Consult Reason/Comments: renal failure Do you want consulting provider notified?: Yes Primary care physician: Dawood Cortés MD Hospital Course: Acute hepatic encephalopathy Decompensated liver cirrhosis and failure Hepatorenal syndrome history of alcohol abuse macrocytic anemia hyperkalemia (given Calcium gluconate , albuterol in the ED) anion gap metabolic acidosis lactic acidosis 67 year old man with history of liver cirrhosis, alcohol abuse presented with liver and kidney failure as well as hepatic encephalopathy. I had a goals of care discussion with the family today who presented to bedside and informed them about patient's significant leak poor prognosis with and MELD score of 40 portending a 70.1% chance of mortality in the next 3 months although more likely patient will not make out of this admission. I explained that both his liver and his kidneys were doing extremely poorly and thus my recommendation for comfort care measures. Patient's family was amenable to this option, and patient will be seen by hospice and converted to comfort care. Patient's family subsequently expressed wish to take patient home for hospice and this was arranged by our hospice team. Patient would meet criteria for inpatient hospice, and is so critical he may en route or before he has an opportunity to get home, and family was educated about this but would like to proceed. Gen: obtunded HEENT: normocephalic, atraumatic, good hearing acuity, moist mucous membranes Resp: poor air exchange, agonal breathing CVS: Poor distal perfusion x 4, GI: soft, NTTP, ND : no SPT, no CVAT, ambrosio catheter is present MSK: no pitting edema, no clubbing, diffuse jaundice Neuro: non-focal, moving all extremities Patient Condition at Discharge: Critical Plan - Discharge Summary New Discharge Prescriptions: Discontinued Glucosam/Silvio-Msm1/C/Jesus Alberto/Bosw [Glucosamine-Chondroitin Tablet] 1 tab PO DAILY Multivitamin [Men's Multi-Vitamin] 1 tab PO DAILY atenoloL [Tenormin] 100 mg PO DAILY allopurinoL [Zyloprim] 300 mg PO DAILY amLODIPine [Norvasc] 5 mg PO DAILY Milk Thistle 150 mg PO DAILY Vit C/E/Zn/Coppr/Lutein/Zeaxan [Preservision Areds 2 Softgel] 1 cap PO DAILY Lisinopril-Hctz 20-12.5 mg [Zestoretic 20-12.5] 1 tab PO DAILY Follow up Appointment(s)/Referral(s): Dawood Cortés MD [Primary Care Provider] - 1-2 days Discharge Disposition: HOME WITH HOSPICE
[2022-08-28 16:39] LABS: Hepatitis A Antibody IgM Nonreactive (Nonreactive); Hepatitis B Core IgM Nonreactive (Nonreactive); Hepatitis B Surface Antigen Nonreactive (Nonreactive); Hepatitis C IgG Antibody Nonreactive (Nonreactive)
[2022-08-28 18:54] VITALS: BP 90/38; PULSE 77; RESP 18; TEMP 98
== END 2022-08-28 18:55 | disposition still patient (30) | DRG 441 ==
LOC: EC 19:45 → 3SCARD 23:45 → 5NMEDONC 08-28 15:01
PROVIDERS: ADMIT Internal Medicine; ATTEND Internal Medicine
DX: K76.82 Hepatic encephalopathy (principal); K72.00 Acute and subacute hepatic failure without coma; N17.0 Acute kidney failure with tubular necrosis; K76.7 Hepatorenal syndrome; G93.49 Other encephalopathy; E87.20 Acidosis, unspecified; F05 Delirium due to known physiological condition; D69.6 Thrombocytopenia, unspecified; K70.10 Alcoholic hepatitis without ascites; I10 Essential (primary) hypertension; D53.9 Nutritional anemia, unspecified; F10.10 Alcohol abuse, uncomplicated; E83.39 Other disorders of phosphorus metabolism; E88.09 Other disorders of plasma-protein metabolism, not elsewhere classified; I95.9 Hypotension, unspecified; K74.60 Unspecified cirrhosis of liver; Z51.5 Encounter for palliative care; E78.5 Hyperlipidemia, unspecified; E87.5 Hyperkalemia; F17.210 Nicotine dependence, cigarettes, uncomplicated; H91.90 Unspecified hearing loss, unspecified ear; R79.1 Abnormal coagulation profile; R79.89 Other specified abnormal findings of blood chemistry; Y90.0 Blood alcohol level of less than 20 mg/100 ml; Z20.822 Contact with and (suspected) exposure to COVID-19; Z79.899 Other long term (current) drug therapy; Z79.82 Long term (current) use of aspirin; Z86.010 Personal history of colon polyps
CPT/HCPCS: 36415; 36600; 70450; 71046; 76705; 76770; 80053; 80074; 80143; 80320; 81001; 82140; 82550; 82805; 83605; 83690; 83735; 84100; 84132; 84484; 85025; 85027; 85610; 87040; 87502; 87635; 93005; 93976; 94640; 96361; 96365; 96375